=== PATIENT | male | born 1940 | race Caucasian/White ===

== ENCOUNTER 2016-07-23 19:43 | Observation (INO) | payer MEDICARE, BC ==
[2016-07-23] MEDS ORDERED: MORPHINE SULFATE 4 MG/ML SYRINGE IV STA (19:50)
[2016-07-23] MEDS ORDERED: NITROGLYCERIN SL TABS 0.4 MG TAB SUBLINGUAL PRN (19:50)
[2016-07-23] MEDS ORDERED: NITROGLYCERIN SL TABS 0.4 MG TAB SUBLINGUAL STA (19:50)
[2016-07-23] MEDS ORDERED: ASPIRIN 81 MG CHEW PO STA (19:50)
[2016-07-23] MEDS ORDERED: MORPHINE SULFATE 4 MG/ML SYRINGE IV PRN (19:50)
[2016-07-23] MEDS ORDERED: SODIUM CHLORIDE 0.9% 1,000 ML IV STA (19:50)
[2016-07-23 20:13] LABS: Basophils # (A) 0.1 k/uL (0-0.2); Basophils % (A) 1 %; CH 33.5; CHCM 35.5; Eosinophils # (A) 0.2 k/uL (0-0.7); Eosinophils % (A) 2 %; HCT 46.5 % (39.0-53.0); HDW 2.88; HGB 15.8 gm/dL (13.0-17.5); Luc # (Auto) 0.24; Luc % (Auto) 3; Lymphocytes # (A) 2.3 k/uL (1.0-4.8); Lymphocytes % (A) 24 %; MCH 32.3 pg (25.0-35.0); MCHC 34.1 g/dL (31.0-37.0); MCV 94.6 fL (80.0-100.0); Mean Platelet Volume 6.8; Monocytes # (A) 0.6 k/uL (0-1.0); Monocytes % (A) 6 %; Neutrophils % (A) 64 %; RBC 4.91 m/uL (4.30-5.90); RDW 13.2 % (11.5-15.5); WBC 9.4 k/uL (3.8-10.6); WBC (Perox) 9.68
[2016-07-23 20:25] LABS: ALT 39 U/L (21-72); AST 38 U/L (17-59); Alkaline Phosphatase 41 U/L (38-126); Anion Gap 12 mmol/L; Blood Urea Nitrogen 12 mg/dL (9-20); Carbon Dioxide 25 mmol/L (22-30); Chloride 105 mmol/L (98-107); Glucose 138 mg/dL (74-99); INR 1.1 (<1.1); Magnesium 1.7 mg/dL (1.6-2.3); Non-African American GFR(MDRD) >60 (>60 ml/min/1.73 sqM); Partial Thromboplastin Time 23.7 sec (22.0-30.0); Potassium 4.6 mmol/L (3.5-5.1); Prothrombin Time 10.7 sec (9.0-12.0); Sodium 142 mmol/L (137-145); Total Bilirubin 0.8 mg/dL (0.2-1.3); Total Protein 8.1 g/dL (6.3-8.2)
--- NOTE | 2016-07-23 20:27 | ED ---
General Adult HPI - General Chief complaint: Chest Pain Stated complaint: chest pain Time Seen by Provider: 07/23/16 19:50 Source: patient, RN notes reviewed, old records reviewed Mode of arrival: wheelchair Limitations: no limitations - History of Present Illness Initial comments: This is a 76-year-old male ER for evaluation for this patient presents today for evaluation of chest pain. Patient has significant cardiac history with CABG 4. No prior cardiac issue or stands for a year or so not years or so now. Patient is without chest pain this time but the chest pain was anterior left-sided Ayes has some numbness in his arms. Patient has no significant short of breath had no diaphoresis [place], again patient's chest pain remains resolved, no recent cough congestion or travel history. No fevers. - Related Data Home Medications Medication Instructions Recorded Confirmed Aspirin EC [Ecotrin Low Dose] 81 mg PO DAILY 07/23/16 07/23/16 Calcium Polycarbophil [Fibercon] 1,250 mg PO DAILY PRN 07/23/16 07/23/16 Ezetimibe [Zetia] 10 mg PO DAILY 07/23/16 07/23/16 Fenofibrate,Micronized 134 mg PO DAILY 07/23/16 07/23/16 [Fenofibrate] Fish Oil/Dha/Epa [Fish Oil 1,200 1 cap PO DAILY 07/23/16 07/23/16 mg Fish Oil] Levothyroxine Sodium [Synthroid] 125 mcg PO DAILY 07/23/16 07/23/16 Metoprolol Tartrate [Lopressor] 25 mg PO BID 07/23/16 07/23/16 Mineral Oil 30 ml PO HS 07/23/16 07/23/16 Naproxen Sodium [Aleve] 440 mg PO DAILY 07/23/16 07/23/16 Nystatin/Triamcin Cream [Mycolog 1 applic TOPICAL HS PRN 07/23/16 07/23/16 100,000-0.1 Unit/gm-% Cream] Ramipril [Altace] 5 mg PO DAILY 07/23/16 07/23/16 Rosuvastatin Calcium [Crestor] 20 mg PO DAILY 07/23/16 07/23/16 amLODIPine [Norvasc] 10 mg PO DAILY 07/23/16 07/23/16 metFORMIN HCL [Glucophage] 500 mg PO DAILY 07/23/16 07/23/16 Allergies Allergy/AdvReac Type Severity Reaction Status Date / Time codeine Allergy Unknown Verified 07/23/16 20:13 Penicillins Allergy Unknown Verified 07/23/16 20:13 Review of Systems ROS Statement: Those systems with pertinent positive or pertinent negative responses have been documented in the HPI. ROS Other: All systems not noted in ROS Statement are negative. Past Medical History Past Medical History: Diabetes Mellitus, Hyperlipidemia, Hypertension, Prostate Disorder, Thyroid Disorder Additional Past Medical History / Comment(s): carpel tunnel History of Any Multi-Drug Resistant Organisms: None Reported Past Surgical History: Cholecystectomy, Coronary Bypass/CABG Additional Past Surgical History / Comment(s): hemorrhoid Past Psychological History: No Psychological Hx Reported Smoking Status: Never smoker Past Alcohol Use History: None Reported Past Drug Use History: None Reported General Exam Limitations: no limitations General appearance: alert, in no apparent distress Head exam: Present: atraumatic, normocephalic, normal inspection Eye exam: Present: normal appearance, PERRL, EOMI. Absent: scleral icterus, conjunctival injection, periorbital swelling ENT exam: Present: normal exam, mucous membranes moist Neck exam: Present: normal inspection. Absent: tenderness, meningismus, lymphadenopathy Respiratory exam: Present: normal lung sounds bilaterally. Absent: respiratory distress, wheezes, rales, rhonchi, stridor Cardiovascular Exam: Present: regular rate, normal rhythm, normal heart sounds. Absent: systolic murmur, diastolic murmur, rubs, gallop, clicks GI/Abdominal exam: Present: soft, normal bowel sounds. Absent: distended, tenderness, guarding, rebound, rigid Extremities exam: Present: normal inspection, full ROM, normal capillary refill. Absent: tenderness, pedal edema, joint swelling, calf tenderness Back exam: Present: normal inspection Neurological exam: Present: alert, oriented X3, CN II-XII intact Psychiatric exam: Present: normal affect, normal mood Skin exam: Present: warm, dry, intact, normal color. Absent: rash Course Vital Signs 07/23/16 19:47 Temperature 98.2 F Pulse Rate 60 Respiratory 20 Rate Blood Pressure 185/93 O2 Sat by Pulse 97 Oximetry - Reevaluation(s) Reevaluation #1: 07/23/16 21:03 Patient remains without chest pain EKG Findings - EKG Comments: EKG Findings:: EKG shows normal sinus rhythm at 65, SD 180, QRS 102, QTC 434 Medical Decision Making - Medical Decision Making 76 male ER for evaluation of chest pain with positive cardiac risk factors and history of CABG, patient's initial EKG shows no ST elevation, patient will be admitted for anticoagulation and further treatment and management of chest pain - Lab Data Result diagrams: 07/23/16 20:03 07/23/16 20:03 Lab Results 07/23/16 07/23/16 07/23/16 Range/Units 20:03 20:03 20:03 WBC 9.4 (3.8-10.6) k/uL RBC 4.91 (4.30-5.90) m/uL Hgb 15.8 (13.0-17.5) gm/dL Hct 46.5 (39.0-53.0) % MCV 94.6 (80.0-100.0) fL MCH 32.3 (25.0-35.0) pg MCHC 34.1 (31.0-37.0) g/dL RDW 13.2 (11.5-15.5) % Plt Count 267 (150-450) k/uL Neutrophils % 64 % Lymphocytes % 24 % Monocytes % 6 % Eosinophils % 2 % Basophils % 1 % Neutrophils # 6.0 (1.3-7.7) k/uL Lymphocytes # 2.3 (1.0-4.8) k/uL Monocytes # 0.6 (0-1.0) k/uL Eosinophils # 0.2 (0-0.7) k/uL Basophils # 0.1 (0-0.2) k/uL PT (9.0-12.0) sec INR (<1.1) APTT (22.0-30.0) sec Sodium 142 (137-145) mmol/L Potassium 4.6 (3.5-5.1) mmol/L Chloride 105 (98-107) mmol/L Carbon Dioxide 25 (22-30) mmol/L Anion Gap 12 mmol/L BUN 12 (9-20) mg/dL Creatinine 0.83 (0.66-1.25) mg/dL Est GFR (MDRD) Af Amer >60 (>60 ml/min/1.73 sqM) Est GFR (MDRD) Non-Af >60 (>60 ml/min/1.73 sqM) Glucose 138 H (74-99) mg/dL Calcium 10.0 (8.4-10.2) mg/dL Magnesium 1.7 (1.6-2.3) mg/dL Total Bilirubin 0.8 (0.2-1.3) mg/dL AST 38 (17-59) U/L ALT 39 (21-72) U/L Alkaline Phosphatase 41 (38-126) U/L Total Creatine Kinase 178 H (55-170) U/L CK-MB (CK-2) 2.2 (0.0-2.4) ng/mL CK-MB (CK-2) Rel Index 1.2 Troponin I <0.012 (0.000-0.034) ng/mL Total Protein 8.1 (6.3-8.2) g/dL Albumin 4.4 (3.5-5.0) g/dL Lipase 178 (23-300) U/L 07/23/16 Range/Units 20:03 WBC (3.8-10.6) k/uL RBC (4.30-5.90) m/uL Hgb (13.0-17.5) gm/dL Hct (39.0-53.0) % MCV (80.0-100.0) fL MCH (25.0-35.0) pg MCHC (31.0-37.0) g/dL RDW (11.5-15.5) % Plt Count (150-450) k/uL Neutrophils % % Lymphocytes % % Monocytes % % Eosinophils % % Basophils % % Neutrophils # (1.3-7.7) k/uL Lymphocytes # (1.0-4.8) k/uL Monocytes # (0-1.0) k/uL Eosinophils # (0-0.7) k/uL Basophils # (0-0.2) k/uL PT 10.7 (9.0-12.0) sec INR 1.1 (<1.1) APTT 23.7 (22.0-30.0) sec Sodium (137-145) mmol/L Potassium (3.5-5.1) mmol/L Chloride (98-107) mmol/L Carbon Dioxide (22-30) mmol/L Anion Gap mmol/L BUN (9-20) mg/dL Creatinine (0.66-1.25) mg/dL Est GFR (MDRD) Af Amer (>60 ml/min/1.73 sqM) Est GFR (MDRD) Non-Af (>60 ml/min/1.73 sqM) Glucose (74-99) mg/dL Calcium (8.4-10.2) mg/dL Magnesium (1.6-2.3) mg/dL Total Bilirubin (0.2-1.3) mg/dL AST (17-59) U/L ALT (21-72) U/L Alkaline Phosphatase (38-126) U/L Total Creatine Kinase (55-170) U/L CK-MB (CK-2) (0.0-2.4) ng/mL CK-MB (CK-2) Rel Index Troponin I (0.000-0.034) ng/mL Total Protein (6.3-8.2) g/dL Albumin (3.5-5.0) g/dL Lipase (23-300) U/L - Radiology Data Radiology results: report reviewed (Chest x-ray two-view is negative for acute disease), image reviewed Critical Care Time Critical Care Time: Yes Total Critical Care Time: 31 Disposition Clinical Impression: Chest pain Disposition: ADMITTED IP TO THIS [facility] Condition: Undetermined Instructions: Chest Pain (ED) Referrals: Shaun Desai MD [Primary Care Provider] - 1-2 days
[2016-07-23 20:28] LABS: Creatine Kinase 178 U/L (55-170)
--- NOTE | 2016-07-23 20:31 | XR ---
EXAMINATION TYPE: XR chest 2V DATE OF EXAM: 07/23/2016 8:25 PM COMPARISON: 07/23/2012 HISTORY: Chest pain TECHNIQUE: Frontal and lateral views of the chest are obtained. FINDINGS: Heart is normal. Lungs are clear. There are sternal wires. There are chest leads. Costophr enic angles are clear. Bony thorax appears intact. IMPRESSION: No active cardiopulmonary disease. Normal heart. No change.
[2016-07-23 20:40] LABS: Creatine Kinase MB 2.2 ng/mL (0.0-2.4); Troponin I <0.012 ng/mL (0.000-0.034)
[2016-07-23] MEDS ORDERED: HEPARIN SODIUM,PORCINE 5,000 UNIT/ML 1 ML VIAL IV ONE (21:04)
[2016-07-23] MEDS ORDERED: HEPARIN SODIUM,PORCINE 5,000 UNIT/ML 1 ML VIAL IV PRN (21:04)
[2016-07-23] MEDS ORDERED: HEPARIN SODIUM,PORCINE/D5W PMX 25,000 UNIT in DEXTROSE/WATER 1 500ML.BAG IV SCH (21:15)
[2016-07-23] MEDS: ONDANSETRON 4 MG/2 ML VIAL IVP STA ×2 (21:23→21:52)
[2016-07-23] MEDS ORDERED: ONDANSETRON 4 MG/2 ML VIAL IVP PRN (21:55)
[2016-07-23 22:22] LABS: Glucose,Whole Blood 162 mg/dL (75-99)
[2016-07-23 22:35] VITALS: BMI 38.2
[2016-07-24 02:33] LABS: Creatine Kinase 183 U/L (55-170)
[2016-07-24 02:45] LABS: Creatine Kinase MB 2.2 ng/mL (0.0-2.4); Troponin I <0.012 ng/mL (0.000-0.034)
[2016-07-24 06:54] LABS: Glucose,Whole Blood 132 mg/dL (75-99)
[2016-07-24 08:07] LABS: Basophils # (A) 0.1 k/uL (0-0.2); Basophils % (A) 1 %; CHCM 34.8; Eosinophils # (A) 0.1 k/uL (0-0.7); Eosinophils % (A) 1 %; HCT 45.5 % (39.0-53.0); HDW 2.96; HGB 15.2 gm/dL (13.0-17.5); Luc # (Auto) 0.16; Luc % (Auto) 2; Lymphocytes # (A) 1.7 k/uL (1.0-4.8); Lymphocytes % (A) 16 %; MCH 31.9 pg (25.0-35.0); MCHC 33.4 g/dL (31.0-37.0); MCV 95.4 fL (80.0-100.0); Mean Platelet Volume 7.7; Monocytes # (A) 0.7 k/uL (0-1.0); Monocytes % (A) 7 %; Neutrophils # (A) 7.7 k/uL (1.3-7.7); Neutrophils % (A) 74 %; RBC 4.77 m/uL (4.30-5.90); RDW 13.2 % (11.5-15.5); WBC 10.4 k/uL (3.8-10.6); WBC (Perox) 10.72
[2016-07-24 08:28] LABS: Cholesterol 132 mg/dL (<200); HDL Cholesterol 41 mg/dL (40-60); Triglycerides 144 mg/dL (<150)
--- NOTE | 2016-07-24 08:37 | P.HPIM ---
History of Present Illness H&P Date: 07/24/16 Chief Complaint: Chest pressure. This is a 76-year-old white male with history of hypertension, who stated yesterday severe chest pressure. The patient states no radiation and no nausea but the severity of the pain made him come in for evaluation. No significant fever or chills. No cough. The patient is a nonsmoker. No second hand smoke is noted. Given his symptomatology and history of hypertension, he is appropriately admitted for rule out myocardial infarction. Stress testing is most likely indicated in this particular situation given his advanced age. Review of Systems Constitutional: Denies chills, Denies fever Eyes: denies blurred vision, denies pain Ears, nose, mouth and throat: Denies headache, Denies sore throat Cardiovascular: Reports chest pain, Denies leg edema, Denies shortness of breath Gastrointestinal: Denies abdominal pain, Denies diarrhea, Denies nausea, Denies vomiting Musculoskeletal: Denies myalgias Integumentary: Reports as per HPI Neurological: Denies numbness, Denies weakness Past Medical History Past Medical History: Diabetes Mellitus, Hyperlipidemia, Hypertension, Prostate Disorder, Thyroid Disorder Additional Past Medical History / Comment(s): carpel tunnel History of Any Multi-Drug Resistant Organisms: None Reported Past Surgical History: Cholecystectomy, Coronary Bypass/CABG Additional Past Surgical History / Comment(s): hemorrhoid, CABG X4 Past Anesthesia/Blood Transfusion Reactions: No Reported Reaction Past Psychological History: No Psychological Hx Reported Smoking Status: Never smoker Past Alcohol Use History: None Reported Past Drug Use History: None Reported - Past Family History Father Family Medical History: No Reported History Additional Family Medical History / Comment(s): Smoker Mother Family Medical History: No Reported History Medications and Allergies Home Medications Medication Instructions Recorded Confirmed Type Aspirin EC [Ecotrin Low Dose] 81 mg PO DAILY 07/23/16 07/23/16 History Calcium Polycarbophil [Fibercon] 1,250 mg PO DAILY PRN 07/23/16 07/23/16 History Ezetimibe [Zetia] 10 mg PO DAILY 07/23/16 07/23/16 History Fenofibrate,Micronized 134 mg PO DAILY 07/23/16 07/23/16 History [Fenofibrate] Fish Oil/Dha/Epa [Fish Oil 1,200 1 cap PO DAILY 07/23/16 07/23/16 History mg Fish Oil] Levothyroxine Sodium [Synthroid] 125 mcg PO DAILY 07/23/16 07/23/16 History Metoprolol Tartrate [Lopressor] 25 mg PO BID 07/23/16 07/23/16 History Mineral Oil 30 ml PO HS 07/23/16 07/23/16 History Naproxen Sodium [Aleve] 440 mg PO DAILY 07/23/16 07/23/16 History Nystatin/Triamcin Cream [Mycolog 1 applic TOPICAL HS PRN 07/23/16 07/23/16 History 100,000-0.1 Unit/gm-% Cream] Ramipril [Altace] 5 mg PO DAILY 07/23/16 07/23/16 History Rosuvastatin Calcium [Crestor] 20 mg PO BID 07/23/16 07/23/16 History amLODIPine [Norvasc] 10 mg PO DAILY 07/23/16 07/23/16 History metFORMIN HCL [Glucophage] 500 mg PO DAILY 07/23/16 07/23/16 History Allergies Allergy/AdvReac Type Severity Reaction Status Date / Time codeine Allergy Unknown Verified 07/23/16 22:19 Penicillins Allergy Unknown Verified 07/23/16 22:19 Physical Exam Vitals: Vital Signs Temp Pulse Pulse Resp BP BP BP 07/24/16 08:00 98.2 F 83 18 153/88 07/24/16 07:17 07/24/16 04:00 86 16 158/90 07/24/16 00:00 84 16 187/86 07/23/16 23:22 20 07/23/16 21:45 98.2 F 73 16 180/87 07/23/16 21:40 96.7 F L 71 20 155/91 Pulse Ox 07/24/16 08:00 93 L 07/24/16 07:17 92 L 07/24/16 04:00 96 07/24/16 00:00 98 07/23/16 23:22 07/23/16 21:45 93 L 07/23/16 21:40 100 Intake and Output 07/23/16 07/24/16 07/24/16 22:59 06:59 14:59 Other: # Voids 2 Weight 113.9 kg - Constitutional General appearance: obese - EENT Eyes: EOMI - Neck Neck: no lymphadenopathy - Respiratory Respiratory: bilateral: CTA - Cardiovascular Rhythm: regular Heart sounds: normal: S1, S2 - Gastrointestinal General gastrointestinal: soft, tenderness - Integumentary Integumentary: rash - Musculoskeletal Musculoskeletal: gait normal Results CBC & Chem 7: 07/24/16 07:31 07/23/16 20:03 Labs: Abnormal Lab Results - Last 24 Hours (Table) 07/23/16 07/23/16 07/23/16 Range/Units 20:03 20:03 22:18 Glucose 138 H (74-99) mg/dL POC Glucose (mg/dL) 162 H (75-99) mg/dL Total Creatine Kinase 178 H (55-170) U/L 07/24/16 07/24/16 Range/Units 01:44 06:47 Glucose (74-99) mg/dL POC Glucose (mg/dL) 132 H (75-99) mg/dL Total Creatine Kinase 183 H (55-170) U/L Thrombosis Risk Factor Assmnt - Choose All That Apply Each Risk Factor Represents 3 Points: Age 75 years or older Thrombosis Risk Factor Assessment Total Risk Factor Score: 3 Thrombosis Risk Factor Assessment Level: Moderate Risk Assessment and Plan (1) Chest pain Status: Acute Plan: Rule out myocardial infarction. Continue home medications. If positivity on stress testing, necessary cardiac evaluation is necessary. Otherwise anticipate discharge in the next 24 hours if stable. Time with Patient: Less than 30
--- NOTE | 2016-07-24 08:43 | CONS ---
DATE OF CONSULTATION: Roel is a 76-year-old gentleman with a history of coronary artery disease, status post CABG who comes to the hospital complaining of chest pain. He describes it as a chest discomfort, located in the left pericardial area that was located in one place lasted for almost a day pressure-like sensation at rest. No diaphoresis, dizziness, and shortness of breath without clear-cut relieving or exacerbating factors. He came to the hospital and was admitted. Since admission patient has remained pain free and hemodynamically stable. He has had cardiac enzymes that have all been within normal limits. Rhythm strip shows that he is in sinus rhythm. EKG does not reveal ST-T wave changes. Given the known CAD and unexplained chest discomfort, I advised the patient to undergo stress test and if it is abnormal, I will ask him to undergo cardiac catheterization. Past medical history is significant for coronary artery disease, status post CABG, hypertension, dyslipidemia, hypothyroidism, noninsulin dependent diabetes. ALLERGIC TO CODEINE AND PENICILLIN. Current medications include metformin, amlodipine 10 mg daily, Crestor 20 daily, Altace 5 daily, Lopressor, levothyroxine, fenofibrate, Zetia, aspirin. FAMILY HISTORY: Negative for premature coronary artery disease. SOCIAL HISTORY: Negative for smoking, EtOH use or drug abuse. REVIEW OF SYSTEMS: HEENT: Unremarkable. CARDIAC: As described above. RESPIRATORY: Negative. GI: Negative. GENITOURINARY: Negative. ALLERGY/IMMUNOLOGY: Negative. SKIN: Negative. MUSCULOSKELETAL: Negative. ENDOCRINE: Negative. HEMATOLOGIC: Negative. DERM: Negative. CONSTITUTIONAL: Negative. The rest of the system review is not relevant. Past medical history is also significant for diabetes, hypertension, dyslipidemia. On exam, patient is comfortable at rest. Vital signs are stable. There is no jugular venous distention. Carotid upstroke is normal. There is no bruit. Chest exam reveals good air entry bilaterally. Heart exam reveals first and second heart sounds. No gallop. No murmur, no rub. Abdomen is soft, nontender. Exam of extremities did not reveal edema. Peripheral pulses are felt. ASSESSMENT: 1. Chest pain. 2. Coronary artery disease status post coronary artery bypass graft. 3. Hypertension. 4. Dyslipidemia. PLAN: Patient's chest discomfort has both typical and atypical components to it. He is pain-free this morning. Myocardial infarction is ruled out. EKG does not reveal ischemic changes. I am going to schedule him for an echocardiogram and stress test and decide on further course of action.
[2016-07-24] MEDS ORDERED: ATORVASTATIN 80 MG TAB PO SCH (09:00)
[2016-07-24] MEDS ORDERED: ASPIRIN 325 MG TAB PO SCH (09:00)
[2016-07-24 09:21] LABS: Hemoglobin A1C 6.5 % (4.2-6.1)
--- NOTE | 2016-07-24 10:29 | EST ---
DATE OF SERVICE: 07/24/2016 AGE: 76Y SEX: M HT: 5'8" WT: 255 lbs. Protocol Rodolfo: X Other: Cardiolite Stress Stage: II Dur. of Exercise: 6:00 *Heart Rate Blood Pressure *Rest: 96 Rest: 197/97 * *Max. Achieved: 144 Maximum BP: 242/103 85% PMHR: 124 100% PMHR: 146 *METS: 7.3 INDICATIONS: Chest pain. MEDICATIONS: - STRESS DATA: Pretesting physical examination showed a heart rate of 96, pressure is 197/97 mmHg. Baseline EKG showed sinus mechanism. The patient exercised on the treadmill according to Rodolfo protocol for a total of 6 minutes and achieved 7.3 METs with max heart rate was 144, which is about 100% of maximum predicted heart rate. Maximum blood pressure was 242/103 mmHg. Clinically, the patient did not have any symptoms of chest pain but he had [address] segment changes on recovery. CONCLUSION: 1. Good exercise capacity. 2. Mild EKG changes in response to exercise. 3. Please follow up on the Cardiolite portion on a separate report from the Radiology Department.
--- NOTE | 2016-07-24 11:09 | NM ---
EXAMINATION TYPE: NM stress cardiolite complete DATE OF EXAM: 07/24/2016 10:53 AM COMPARISON: Prior nuclear medicine cardiac stress test July 25, 2012. HISTORY: History of hypertension, hypercholesteremia, and prior heart catheterization with 4 vessel C ABG procedure presents with new chest pain TECHNIQUE: After the intravenous administration of 11 mCi Tc 99m Sestamibi - Rest images obtained 50 minutes post injection. The patient exercised using a PATRIA protocol and 1 minute prior to peak ex ercise was injected with 27.5 mCi Tc 99m Sestamibi - Stress images obtained 10 minutes post injection . FINDINGS: Targeted heart rate was achieved during performance of the study. Review of stress and rest SPECT josh ges demonstrates no distinct perfusion abnormality. Gated analysis shows normal wall motion with an estimated left ventricular ejection fraction of 59 %. IMPRESSION: No scintigraphic evidence for reversible ischemia
[2016-07-24] MEDS ORDERED: ACETAMINOPHEN TAB 325 MG TAB PO PRN (11:54)
[2016-07-24 12:04] LABS: Glucose,Whole Blood 185 mg/dL (75-99)
[2016-07-24] MEDS ORDERED: NYSTAT-TRIAMCIN 100,000-0.1 UNIT/GM-% CREAM 30 GM TUBE TOPICAL PRN (12:58)
[2016-07-24] MEDS ORDERED: metFORMIN 500 MG TAB PO SCH (13:00)
[2016-07-24] MEDS ORDERED: CALCIUM POLYCARBOPHIL 625 MG TAB PO PRN (13:20)
[2016-07-24] MEDS ORDERED: TRIAMCINOLONE 0.1% CREAM 80 GM TUBE TOPICAL PRN (13:24)
[2016-07-24] MEDS ORDERED: NYSTATIN 100,000UNIT/GM CREAM 30 GM TUBE TOPICAL PRN (13:25)
[2016-07-24 16:02] VITALS: BP 117/69; PULSE 77; RESP 16; TEMP 97.9
[2016-07-24] MEDS ORDERED: NON-FORMULARY DRUG (Rosuvastatin Calcium [Crestor] 20 MG) PO SCH (21:00)
[2016-07-24] MEDS ORDERED: METOPROLOL TARTRATE 25 MG TAB PO SCH (21:00)
[2016-07-24] MEDS ORDERED: MINERAL OIL 30 ML CUP PO SCH (21:00)
[2016-07-24] MEDS ORDERED: ATORVASTATIN 40 MG TAB PO SCH (21:00)
[2016-07-25] MEDS ORDERED: LEVOTHYROXINE 125 MCG TAB PO SCH (06:30)
[2016-07-25] MEDS ORDERED: NON-FORMULARY DRUG (Fish Oil/Dha/Epa [Fish Oil 1,200 Mg Fish Oil] 1 CAP) PO SCH (09:00)
[2016-07-25] MEDS ORDERED: EZETIMIBE 10 MG TAB PO SCH (09:00)
[2016-07-25] MEDS ORDERED: FENOFIBRATE 160 MG TAB PO SCH (09:00)
[2016-07-25] MEDS ORDERED: amLODIPine 10 MG TAB PO SCH (09:00)
[2016-07-25] MEDS ORDERED: LISINOPRIL 20 MG TAB PO SCH (09:00)
[2016-07-25] MEDS ORDERED: NAPROXEN 250 MG TAB PO SCH (09:00)
[2016-07-25] MEDS ORDERED: ASPIRIN 81 MG CHEW PO SCH (09:00)
== END 2016-07-24 16:46 | disposition home or self-care (01) ==
LOC: EC 19:43 → 3OBS 19:50
PROVIDERS: ADMIT Family Medicine; ATTEND Family Medicine
DX: R07.9 Chest pain, unspecified (principal); I25.10 Atherosclerotic heart disease of native coronary artery without angina pectoris; E03.9 Hypothyroidism, unspecified; E11.9 Type 2 diabetes mellitus without complications; E78.5 Hyperlipidemia, unspecified; I10 Essential (primary) hypertension; Z79.82 Long term (current) use of aspirin; Z88.0 Allergy status to penicillin; Z88.5 Allergy status to narcotic agent; Z95.1 Presence of aortocoronary bypass graft; Z79.84 Long term (current) use of oral hypoglycemic drugs; Z79.890 Hormone replacement therapy; Z79.899 Other long term (current) drug therapy
CPT/HCPCS: 99291; 96375 ×2; 96376; 96361; 93005 ×2; 36415; 94760; 93017; 80061; 80053; 83036; 82550 ×2; 82553 ×2; 83690; 83735; 84484 ×2; 85025 ×2; 85610; 85730 ×2; 71020; 78452; G0378 ×2; A9500; J2270 ×2; J1644 ×2; J2405; 96365; 96366

== ENCOUNTER 2017-06-24 18:18 | Observation (INO) | payer BC, MEDICARE ==
[2017-06-24] MEDS ORDERED: ASPIRIN 81 MG PO STA (18:39)
[2017-06-24] MEDS ORDERED: NITROGLYCERIN OINT 1 INCH/GM PACKET TOPICAL STA (18:39)
--- NOTE | 2017-06-24 18:43 | ED ---
Chest Pain HPI - General Chief Complaint: Chest Pain Stated Complaint: Chest pain Time Seen by Provider: 06/24/17 18:34 Source: patient, family Mode of arrival: wheelchair Limitations: no limitations - History of Present Illness Initial Comments: This 77-year-old white male presents with a complaint of some chest pain. This occurred after he was shoveling some snow this morning. He states that he gets a slight twinge into his left chest intermittently throughout the day. It usually lasts several seconds. It does not radiate. It is not associated with any shortness of breath or difficulty in breathing. He denies any leg pain or swelling. He does have a history of cardiac disease. He had a four-vessel CABG in 2001. He denies any complications since. He is unsure of his last heart catheterization but it is been quite some time ago. He apparently did have a routine stress test within the last year or 2 which was negative but the states he did not complete the second portion of this test. He did not try any nitroglycerin today. No other complaints or modifying factors. - Related Data Home Medications Medication Instructions Recorded Confirmed Aspirin EC [Ecotrin Low Dose] 81 mg PO QAM 07/23/16 06/24/17 Calcium Polycarbophil [Fibercon] 1,250 mg PO DAILY PRN 07/23/16 06/24/17 Ezetimibe [Zetia] 10 mg PO HS 07/23/16 06/24/17 Fenofibrate,Micronized 134 mg PO QAM 07/23/16 06/24/17 [Fenofibrate] Fish Oil/Dha/Epa [Fish Oil 1,200 1 cap PO QAM 07/23/16 06/24/17 mg Fish Oil] Levothyroxine Sodium [Synthroid] 125 mcg PO QAM 07/23/16 06/24/17 Metoprolol Tartrate [Lopressor] 25 mg PO BID 07/23/16 06/24/17 Mineral Oil 30 ml PO HS 07/23/16 06/24/17 Naproxen Sodium [Aleve] 440 mg PO QAM 07/23/16 06/24/17 Nystatin/Triamcin Cream [Mycolog 1 applic TOPICAL HS PRN 07/23/16 06/24/17 100,000-0.1 Unit/gm-% Cream] Ramipril [Altace] 5 mg PO QAM 07/23/16 06/24/17 Rosuvastatin Calcium [Crestor] 20 mg PO HS 07/23/16 06/24/17 amLODIPine [Norvasc] 10 mg PO QAM 07/23/16 06/24/17 metFORMIN HCL [Glucophage] 500 mg PO QAM 07/23/16 06/24/17 Allergies Allergy/AdvReac Type Severity Reaction Status Date / Time codeine Allergy Unknown Verified 06/24/17 18:43 Penicillins Allergy Unknown Verified 06/24/17 18:43 Review of Systems ROS Statement: Those systems with pertinent positive or pertinent negative responses have been documented in the HPI. ROS Other: All systems not noted in ROS Statement are negative. Past Medical History Past Medical History: Diabetes Mellitus, Hyperlipidemia, Hypertension, Prostate Disorder, Thyroid Disorder Additional Past Medical History / Comment(s): carpel tunnel History of Any Multi-Drug Resistant Organisms: None Reported Past Surgical History: Cholecystectomy, Coronary Bypass/CABG Additional Past Surgical History / Comment(s): hemorrhoid, CABG X4 Past Anesthesia/Blood Transfusion Reactions: No Reported Reaction Past Psychological History: No Psychological Hx Reported Smoking Status: Never smoker Past Alcohol Use History: None Reported Past Drug Use History: None Reported - Past Family History Father Family Medical History: No Reported History Additional Family Medical History / Comment(s): Smoker Mother Family Medical History: No Reported History General Exam - General Exam Comments Initial Comments: GENERAL: The patient is well nourished and well hydrated. VITAL SIGNS: Heart rate, blood pressure, respiratory rate reviewed as recorded in nurse's notes. EYES: Pupils are round and reactive. Extraocular movements are intact. No conjunctival / lid redness or swelling. ENT: No external evidence of injury, swelling, or ecchymosis. Airway is patent. Throat is clear. NECK: Nontender. No swelling or evidence of injury. No subcutaneous emphysema. Trachea is midline. No thyroid mass. HEART: Regular rate and rhythm. Good peripheral pulses. LUNGS/CHEST: Breath sounds clear and equal bilaterally. No rales, rhonchi, or wheezes. No ecchymosis, subcutaneous emphysema, or tenderness. ABDOMEN: Abdomen soft without tenderness. No palpable masses or organomegaly. No peritoneal signs. No abdominal wall swelling or ecchymosis. EXTREMITIES: No extremity tenderness. Normal muscle tone and function. No thoracolumbar tenderness. NEUROLOGIC: Sensation is grossly intact. Cranial nerve exam reveals face is symmetrical, tongue is midline, speech is clear. SKIN: No abrasions or ecchymosis is noted. No induration or masses noted. PSYCHIATRIC: Alert and oriented. Appropriate behavior and judgment. Limitations: no limitations Course Vital Signs 06/24/17 18:20 Temperature 98.2 F Pulse Rate 77 Respiratory 20 Rate Blood Pressure 161/79 O2 Sat by Pulse 95 Oximetry Chest Pain MDM - MDM The patient was seen and examined. All diagnostics were reviewed. The EKG was done and shows a normal sinus rhythm at a rate of 76. There is no acute ST-T wave changes identified. The LA interval is 172, QRS duration is 100, the QTC intervals 452. He does receive aspirin as well as some Nitropaste. The laboratory is unremarkable. The chest x-ray did not show any acute processes. He is in no distress whatsoever on recheck. Is felt as though he would benefit from admission to the hospital for further Cardiologic workup. He is agreeable. Case will be discussed with Dr. Desai in the near future. Disposition Clinical Impression: Unstable angina pectoris, Chest pain, Hypertension Disposition: ADMITTED IP TO THIS HOSP Condition: Fair Referrals: Shaun Desai MD [Primary Care Provider] - 1-2 days Time of Disposition: 20:24 Decision Date: 06/24/17 Decision Time: 20:25
[2017-06-24 19:23] LABS: Basophils # (A) 0.1 k/uL (0-0.2); Basophils % (A) 1 %; Eosinophils # (A) 0.1 k/uL (0-0.7); Eosinophils % (A) 1 %; HCT 44.6 % (39.0-53.0); HGB 15.2 gm/dL (13.0-17.5); Lymphocytes % (A) 24 %; MCH 32.2 pg (25.0-35.0); MCHC 34.2 g/dL (31.0-37.0); MCV 94.1 fL (80.0-100.0); Mean Platelet Volume 7.4; Monocytes # (A) 0.6 k/uL (0-1.0); Monocytes % (A) 7 %; Neutrophils # (A) 5.6 k/uL (1.3-7.7); Neutrophils % (A) 66 %; Platelet Count 249 k/uL (150-450); RBC 4.74 m/uL (4.30-5.90); RDW 13.9 % (11.5-15.5); WBC 8.6 k/uL (3.8-10.6)
--- NOTE | 2017-06-24 19:31 | XR ---
EXAMINATION TYPE: XR chest 2V DATE OF EXAM: 06/24/2017 COMPARISON: 07/23/2016 HISTORY: Chest pain TECHNIQUE: Frontal and lateral views of the chest are obtained. FINDINGS: There is no focal air space opacity, pleural effusion, or pneumothorax seen. Post-CABG luisito nges are appreciated of the chest. There is descending thoracic aortic tortuosity. The cardiac silhou ette size is within normal limits. The osseous structures are intact. Mild multilevel degenerative changes of the thoracic spine are seen. IMPRESSION: No acute cardiopulmonary process.
[2017-06-24 19:32] LABS: ALT 43 U/L (21-72); AST 28 U/L (17-59); Albumin 4.3 g/dL (3.5-5.0); Alkaline Phosphatase 45 U/L (38-126); Anion Gap 10 mmol/L; Blood Urea Nitrogen 16 mg/dL (9-20); Carbon Dioxide 29 mmol/L (22-30); Chloride 106 mmol/L (98-107); Glucose 141 mg/dL (74-99); Magnesium 1.8 mg/dL (1.6-2.3); Potassium 4.1 mmol/L (3.5-5.1); Sodium 145 mmol/L (137-145); Total Bilirubin 0.6 mg/dL (0.2-1.3); Total Protein 7.5 g/dL (6.3-8.2)
[2017-06-24 19:55] LABS: Creatine Kinase MB 2.4 ng/mL (0.0-2.4); Troponin I 0.019 ng/mL (0.000-0.034)
[2017-06-24 20:00] LABS: INR 1.1 (<1.2); Prothrombin Time 10.6 sec (9.0-12.0)
[2017-06-24 20:01] LABS: Partial Thromboplastin Time 23.1 sec (22.0-30.0)
[2017-06-24] MEDS ORDERED: NITROGLYCERIN SL TABS 0.4 MG TAB SUBLINGUAL PRN (20:26)
[2017-06-24] MEDS ORDERED: HEPARIN SODIUM,PORCINE 5,000 UNIT/ML 1 ML VIAL IV ONE (20:26)
[2017-06-24] MEDS ORDERED: HEPARIN SODIUM,PORCINE 5,000 UNIT/ML 1 ML VIAL IV PRN (20:26)
[2017-06-24] MEDS ORDERED: CALCIUM POLYCARBOPHIL 625 MG TAB PO PRN (20:29)
[2017-06-24] MEDS ORDERED: NYSTATIN 100,000UNIT/GM CREAM 30 GM TUBE TOPICAL PRN (20:29)
[2017-06-24] MEDS ORDERED: TRIAMCINOLONE 0.1% CREAM 80 GM TUBE TOPICAL PRN (20:43)
[2017-06-24] MEDS ORDERED: MINERAL OIL 30 ML CUP PO SCH (21:00)
[2017-06-24] MEDS ORDERED: MINERAL OIL PO SCH (21:14)
[2017-06-24] MEDS: HEPARIN SOD,PORK IN 0.45% NACL 25,000 UNIT in 0.45% NACL 1 500ML.BAG IV SCH (21:29)
[2017-06-24 21:35] VITALS: RESP 18
[2017-06-24] MEDS: METOPROLOL TARTRATE 25 MG TAB PO SCH (22:30)
[2017-06-24] MEDS: EZETIMIBE 10 MG TAB PO SCH (22:30)
[2017-06-24] MEDS: ATORVASTATIN 40 MG TAB PO SCH (22:31)
[2017-06-24] MEDS ORDERED: KETOROLAC 30 MG/ML 1 ML VIAL IVP STA (23:30)
[2017-06-25 02:17] LABS: Creatine Kinase MB 2.1 ng/mL (0.0-2.4); Troponin I 0.022 ng/mL (0.000-0.034)
[2017-06-25] MEDS: NITROGLYCERIN OINT 1 INCH/GM PACKET TOPICAL SCH ×5 (02:21→23:01)
[2017-06-25 03:31] LABS: Mean Platelet Volume 6.9; Platelet Count 236 k/uL (150-450)
[2017-06-25 03:55] LABS: Cholesterol 103 mg/dL (<200); HDL Cholesterol 29 mg/dL (40-60); LDL Cholesterol,Calculated 44 mg/dL (0-99); Triglycerides 150 mg/dL (<150)
[2017-06-25 04:09] VITALS: BMI 37.2
[2017-06-25] MEDS: LEVOTHYROXINE 125 MCG TAB PO SCH (06:42)
[2017-06-25] MEDS ORDERED: metFORMIN 500 MG TAB PO SCH (07:30)
--- NOTE | 2017-06-25 07:51 | P.HPIM ---
History of Present Illness H&P Date: 06/25/17 Chief Complaint: Chest pressure after exertion. This is a history of physical on a 77-year-old white male essentially admitted for chest pain after shoveling snow yesterday. He has an underlying history of previous coronary artery disease. He states he was doing quite well until shortly after shoveling the snow and using the snowblower to remove the snow fall from yesterday.The patient is sitting comfortably but states his had fleeting palpitations and pain since admission. He did not take any type of nitroglycerin. He is a nonsmoker and there is no secondhand smoke noted. No sniffing nausea or vomiting was stated. No diaphoresis but he had left-sided chest pain. No radiation of the pain stated. But it was felt to be pressure type pain which waxed and waned. Review of Systems Constitutional: Denies chills, Denies fever Eyes: denies blurred vision, denies pain Ears, nose, mouth and throat: Denies headache, Denies sore throat Cardiovascular: Reports chest pain Respiratory: Denies cough Gastrointestinal: Denies abdominal pain, Denies diarrhea, Denies nausea, Denies vomiting Past Medical History Past Medical History: Hyperlipidemia, Hypertension, Prostate Disorder, Thyroid Disorder Additional Past Medical History / Comment(s): carpel tunnel History of Any Multi-Drug Resistant Organisms: None Reported Past Surgical History: Cholecystectomy, Coronary Bypass/CABG Additional Past Surgical History / Comment(s): hemorrhoid, CABG X4 Past Anesthesia/Blood Transfusion Reactions: No Reported Reaction Past Psychological History: No Psychological Hx Reported Smoking Status: Never smoker Past Alcohol Use History: None Reported Past Drug Use History: None Reported - Past Family History Father Family Medical History: No Reported History Additional Family Medical History / Comment(s): Smoker Mother Family Medical History: No Reported History Medications and Allergies Home Medications Medication Instructions Recorded Confirmed Type Aspirin EC [Ecotrin Low Dose] 81 mg PO QAM 07/23/16 06/24/17 History Calcium Polycarbophil [Fibercon] 1,250 mg PO DAILY PRN 07/23/16 06/24/17 History Ezetimibe [Zetia] 10 mg PO HS 07/23/16 06/24/17 History Fenofibrate,Micronized 134 mg PO QAM 07/23/16 06/24/17 History [Fenofibrate] Fish Oil/Dha/Epa [Fish Oil 1,200 1 cap PO QAM 07/23/16 06/24/17 History mg Fish Oil] Levothyroxine Sodium [Synthroid] 125 mcg PO QAM 07/23/16 06/24/17 History Metoprolol Tartrate [Lopressor] 25 mg PO BID 07/23/16 06/24/17 History Mineral Oil 30 ml PO HS 07/23/16 06/24/17 History Naproxen Sodium [Aleve] 440 mg PO QAM 07/23/16 06/24/17 History Nystatin/Triamcin Cream [Mycolog 1 applic TOPICAL HS PRN 07/23/16 06/24/17 History 100,000-0.1 Unit/gm-% Cream] Ramipril [Altace] 5 mg PO QAM 07/23/16 06/24/17 History Rosuvastatin Calcium [Crestor] 20 mg PO HS 07/23/16 06/24/17 History amLODIPine [Norvasc] 10 mg PO QAM 07/23/16 06/24/17 History metFORMIN HCL [Glucophage] 500 mg PO QAM 07/23/16 06/24/17 History Allergies Allergy/AdvReac Type Severity Reaction Status Date / Time codeine Allergy Unknown Verified 06/24/17 18:43 Penicillins Allergy Unknown Verified 06/24/17 18:43 Physical Exam Vitals: Vital Signs Temp Pulse Pulse Resp BP BP Pulse Ox 06/25/17 07:47 98.0 F 66 18 125/77 94 L 06/25/17 03:00 18 06/25/17 01:10 97.9 F 65 18 145/84 96 06/24/17 23:53 68 18 141/85 06/24/17 21:33 78 18 140/87 06/24/17 18:20 98.2 F 77 20 161/79 95 Intake and Output 06/24/17 06/25/17 06/25/17 22:59 06:59 14:59 Intake Total 184.667 Balance 184.667 Intake: Intake, IV Titration 184.667 Amount Heparin Sod,Pork in 0.45% 184.667 NaCl 25,000 unit In 0.45 % NaCl 1 500ml.bag @ 9 UNITS/KG/HR 20 mls/hr IV .Q24H [facility] Rx#:[id number] Other: Weight 111.13 kg 111.13 kg - Constitutional General appearance: obese - EENT Eyes: EOMI - Neck Neck: no lymphadenopathy - Respiratory Respiratory: bilateral: CTA - Cardiovascular Rhythm: regular Heart sounds: normal: S1, S2 Abnormal Heart Sounds: systolic murmur - Gastrointestinal General gastrointestinal: soft, no tenderness - Neurologic Neurologic: CNII-XII intact - Psychiatric Psychiatric: A&O x's 3, appropriate affect Results CBC & Chem 7: 06/25/17 03:02 06/24/17 19:15 Labs: Abnormal Lab Results - Last 24 Hours (Table) 06/24/17 06/24/17 06/25/17 Range/Units 19:15 19:15 00:47 APTT (22.0-30.0) sec Glucose 141 H (74-99) mg/dL Total Creatine Kinase 213 H 201 H (55-170) U/L Triglycerides (<150) mg/dL HDL Cholesterol (40-60) mg/dL 06/25/17 06/25/17 Range/Units 03:02 03:02 APTT 38.3 H (22.0-30.0) sec Glucose (74-99) mg/dL Total Creatine Kinase (55-170) U/L Triglycerides 150 H (<150) mg/dL HDL Cholesterol 29 L (40-60) mg/dL Thrombosis Risk Factor Assmnt - Choose All That Apply Each Risk Factor Represents 2 Points: Age 61-74 years Thrombosis Risk Factor Assessment Total Risk Factor Score: 2 Thrombosis Risk Factor Assessment Level: Low Risk Assessment and Plan (1) Chest pain Current Visit: Yes Status: Acute Code(s): R07.9 - CHEST PAIN, UNSPECIFIED SNOMED Code(s): 82705303 (2) Hypertension Current Visit: Yes Status: Acute Code(s): I10 - ESSENTIAL (PRIMARY) HYPERTENSION SNOMED Code(s): 89591877 (3) Unstable angina pectoris Current Visit: Yes Status: Acute Code(s): I20.0 - UNSTABLE ANGINA SNOMED Code(s): 5070991 Plan: Reconcile home medications. Rule out myocardial infarction. Cardiology consulted for probable stress testing versus cardiac catheterization given his exertional angina. We'll continue to follow. At this time, he is a full code. See orders otherwise. Time with Patient: Less than 30
[2017-06-25 08:31] LABS: Creatine Kinase MB 2.2 ng/mL (0.0-2.4); Troponin I 0.025 ng/mL (0.000-0.034)
[2017-06-25] MEDS ORDERED: NON-FORMULARY DRUG (Fish Oil/Dha/Epa [Fish Oil 1,200 Mg Fish Oil] 1 CAP) PO SCH (09:00)
[2017-06-25] MEDS: METOPROLOL TARTRATE 25 MG TAB PO SCH ×2 (10:35→21:04)
[2017-06-25] MEDS: LISINOPRIL 20 MG TAB PO SCH (10:35)
[2017-06-25] MEDS: ASPIRIN 325 MG TAB PO SCH (10:35)
[2017-06-25] MEDS: FENOFIBRATE 160 MG TAB PO SCH (10:36)
[2017-06-25] MEDS: NAPROXEN 250 MG TAB PO SCH (10:36)
[2017-06-25] MEDS: amLODIPine 10 MG TAB PO SCH (10:36)
--- NOTE | 2017-06-25 10:38 | ECHOF ---
Referral Reason:cp MEASUREMENTS -------- HEIGHT: 172.7 cm WEIGHT: 111.1 kg BP: 145/84 RVIDd: 3.3 cm (< 3.3) IVSd: 1.4 cm (0.6 - 1.1) LVIDd: 5.1 cm (3.9 - 5.3) LVPWd: 1.4 cm (0.6 - 1.1) IVSs: 1.9 cm LVIDs: 3.7 cm LVPWs: 1.9 cm LA Diam: 4.0 cm (2.7 - 3.8) LAESV Index (A-L): 25.88 ml/m Ao Diam: 3.9 cm (2.0 - 3.7) AV Cusp: 2.8 cm (1.5 - 2.6) MV EXCURSION: 19.089 mm (> 18.000) MV EF SLOPE: 42 mm/s (70 - 150) EPSS: 0.5 cm MV E Romario: 0.75 m/s MV DecT: 291 ms MV A Romario: 1.11 m/s MV E/A Ratio: 0.68 AR PHT: 771 ms RAP: 5.00 mmHg RVSP: 26.63 mmHg FINDINGS -------- Sinus rhythm. This was a technically adequate study. The left ventricular size is normal. There is moderate concentric left ventricular hypertrophy. O verall left ventricular systolic function is normal with, an EF between 55 - 60 %. The right ventricle is mildly enlarged. Normal LA size by volume 22+/-6 ml/m2. The right atrium is normal in size. There is mild aortic valve sclerosis. There is mild aortic regurgitation. Mild mitral annular calcification present. Mild tricuspid regurgitation present. Right ventricular systolic pressure is normal at < 35 mmHg. Trace/mild (physiologic) pulmonic regurgitation. The aortic root is dilated measuring 3.9cm. The inferior vena cava is mildly dilated. There is no pericardial effusion. CONCLUSIONS -------- 1. Sinus rhythm. 2. This was a technically adequate study. 3. The left ventricular size is normal. 4. There is moderate concentric left ventricular hypertrophy. 5. Overall left ventricular systolic function is normal with, an EF between 55 - 60 %. 6. The right ventricle is mildly enlarged. 7. Normal LA size by volume 22+/-6 ml/m2. 8. The right atrium is normal in size. 9. There is mild aortic valve sclerosis. 10. There is mild aortic regurgitation. 11. Mild mitral annular calcification present. 12. Mild tricuspid regurgitation present. 13. Right ventricular systolic pressure is normal at < 35 mmHg. 14. Trace/mild (physiologic) pulmonic regurgitation. 15. The aortic root is dilated measuring 3.9cm. 16. The inferior vena cava is mildly dilated. 17. There is no pericardial effusion. [employer]S COUNTER ASSISTANT: Ely Galarza RDCS
[2017-06-25] MEDS ORDERED: SODIUM CHLORIDE 0.9% 1,000 ML in EMPTY BAG 1 BAG IV ONE (11:28)
[2017-06-25] MEDS ORDERED: ALPRAZolam 0.25 MG TAB PO PRN (11:28)
[2017-06-25] MEDS ORDERED: ALPRAZolam 0.5 MG TAB PO PRN (11:28)
--- NOTE | 2017-06-25 12:57 | P.CRDCN ---
History of Present Illness Consult date: 06/25/17 History of present illness: Mr. Larsen is a pleasnt 77-year-old make with past medicla history significant for 4-vessel bypass grafting approximately 15-20 years ago in [place], dyslipidemia and hypertension. He follows regularly with Dr. Hobbs as an outpatient. He last saw him in February and was recommended he undergo a cardiolyte stress test which he was unable to complete secondary to claustrophobia. We have been asked to see him in consultation for complaints of chest pain. He states yesterday while he was using his snowblower he began to feel a sharp stabbing pain in his chest. This pain was intermittent in nature and persisted until he went in the house and sat down. He denies associated shortness of breath, dizziness, palpitations, nausea or vomiting. He does recall having some degree of diaphoresis but was bundled in a coat and unsure if related to being overheated. Has had no further episodes of chest pain since admission and telemetry tracings have been unremarkable. EKG on arrival reveals sinus mechanism with ST depression in precoridal lateral leads. This is a new finding. Previous EKG's have shown T-wave abnormalities in limb leads. Chest xray is negative for an acute cardiopulmonary process. Laboratory data reviewed, cardiac enzymes negative x3, potassium 4.1, magnesium 1.8, hgb 15.2, platelets 249, creatinine 1.1, LDL 44, HDL 29. Current cardiac medications include Lopressor 25 mg twice a day, Crestor 20 mg daily, fatty a 10 mg daily, aspirin 81 mg daily, amlodipine 10 mg daily, ramipril 5 mg daily and fenofibrate 134 mg. Review of Systems At the time of my exam: CONSTITUTIONAL: Denies fever. Denies chills. EYES: Denies blurred vision. Denies vision changes. Denies eye pain. EARS, NOSE, MOUTH & THROAT: Denies headache. Denies sore throat. Denies ear pain. CARDIOVASCULAR: Denies chest pain. Denies shortness of breath. Denies orthopnea. Denies PND. Denies palpitations. RESPIRATORY: Denies cough. GASTROINTESTINAL: Denies abdominal pain. Denies diarrhea. Denies constipation. Denies nausea. Denies vomiting. MUSCULOSKELETAL: Denies myalgias. INTEGUMENTARY: Denies pruitis. Denies rash. NEUROLOGIC: Denies numbness. Denies tingling. Denies weakness. PSYCHIATRIC: Denies anxiety. Denies depression. ENDOCRINE: Denies fatigue. Denies weight change. Denies polydipsia. Denies polyurina. GENITOURINARY: Denies burning, hematuria or urgency with micturation. HEMATOLOGIC: Denies history of anemia. Denies bleeding. Past Medical History Past Medical History: Hyperlipidemia, Hypertension, Prostate Disorder, Thyroid Disorder Additional Past Medical History / Comment(s): carpel tunnel History of Any Multi-Drug Resistant Organisms: None Reported Past Surgical History: Cholecystectomy, Coronary Bypass/CABG Additional Past Surgical History / Comment(s): hemorrhoid, CABG X4 Past Anesthesia/Blood Transfusion Reactions: No Reported Reaction Past Psychological History: No Psychological Hx Reported Smoking Status: Never smoker Past Alcohol Use History: None Reported Past Drug Use History: None Reported - Past Family History Father Family Medical History: No Reported History Additional Family Medical History / Comment(s): Smoker Mother Family Medical History: No Reported History Medications and Allergies Home Medications Medication Instructions Recorded Confirmed Type Aspirin EC [Ecotrin Low Dose] 81 mg PO QAM 07/23/16 06/24/17 History Calcium Polycarbophil [Fibercon] 1,250 mg PO DAILY PRN 07/23/16 06/24/17 History Ezetimibe [Zetia] 10 mg PO HS 07/23/16 06/24/17 History Fenofibrate,Micronized 134 mg PO QAM 07/23/16 06/24/17 History [Fenofibrate] Fish Oil/Dha/Epa [Fish Oil 1,200 1 cap PO QAM 07/23/16 06/24/17 History mg Fish Oil] Levothyroxine Sodium [Synthroid] 125 mcg PO QAM 07/23/16 06/24/17 History Metoprolol Tartrate [Lopressor] 25 mg PO BID 07/23/16 06/24/17 History Mineral Oil 30 ml PO HS 07/23/16 06/24/17 History Naproxen Sodium [Aleve] 440 mg PO QAM 07/23/16 06/24/17 History Nystatin/Triamcin Cream [Mycolog 1 applic TOPICAL HS PRN 07/23/16 06/24/17 History 100,000-0.1 Unit/gm-% Cream] Ramipril [Altace] 5 mg PO QAM 07/23/16 06/24/17 History Rosuvastatin Calcium [Crestor] 20 mg PO HS 07/23/16 06/24/17 History amLODIPine [Norvasc] 10 mg PO QAM 07/23/16 06/24/17 History metFORMIN HCL [Glucophage] 500 mg PO QAM 07/23/16 06/24/17 History Allergies Allergy/AdvReac Type Severity Reaction Status Date / Time codeine Allergy Unknown Verified 06/24/17 18:43 Penicillins Allergy Unknown Verified 06/24/17 18:43 Physical Exam Vitals: Vital Signs Temp Pulse Pulse Resp BP BP Pulse Ox 06/25/17 07:47 98.0 F 66 18 125/77 94 L 06/25/17 03:00 18 06/25/17 01:10 97.9 F 65 18 145/84 96 06/24/17 23:53 68 18 141/85 06/24/17 21:33 78 18 140/87 06/24/17 18:20 98.2 F 77 20 161/79 95 Intake and Output 06/24/17 06/25/17 06/25/17 22:59 06:59 14:59 Intake Total 184.667 Balance 184.667 Intake: Intake, IV Titration 184.667 Amount Heparin Sod,Pork in 0.45% 184.667 NaCl 25,000 unit In 0.45 % NaCl 1 500ml.bag @ 9 UNITS/KG/HR 20 mls/hr IV .Q24H [facility] Rx#:[id number] Other: Weight 111.13 kg 111.13 kg Blood pressure 125/77 heart rate 66 afebrile GENERAL: This is a 77-year-old male in no apparent distress at the time of my examination. Obese HEENT: Head is atraumatic, normocephalic. Pupils are equal, round. Sclerae anicteric. Conjunctivae are clear. Mucous membranes of the mouth are moist. Neck is supple. There is no jugular venous distention. No carotid bruit is heard. LUNGS: Clear to auscultation no wheezes, rales or rhonchi. No chest wall tenderness is noted on palpation or with deep breathing. HEART: Regular rate and rhythm without murmurs, rubs or gallops. S1 and S2 heard. ABDOMEN: Soft, nontender. Bowel sounds are heard. No organomegaly noted. EXTREMITIES: 2+ peripheral pulses with no evidence of peripheral edema and no calf tenderness noted. NEUROLOGIC: Patient is awake, alert and oriented x3. Results 06/25/17 03:02 06/24/17 19:15 Cardiac Enzymes 06/24/17 06/24/17 06/25/17 Range/Units 19:15 19:15 00:47 AST 28 (17-59) U/L CK-MB (CK-2) 2.4 2.1 (0.0-2.4) ng/mL Troponin I 0.019 0.022 (0.000-0.034) ng/mL Coagulation 06/24/17 06/25/17 Range/Units 19:15 03:02 PT 10.6 (9.0-12.0) sec APTT 23.1 38.3 H (22.0-30.0) sec Lipids 06/25/17 Range/Units 03:02 Triglycerides 150 H (<150) mg/dL Cholesterol 103 (<200) mg/dL HDL Cholesterol 29 L (40-60) mg/dL CBC 06/24/17 06/25/17 Range/Units 19:15 03:02 WBC 8.6 (3.8-10.6) k/uL RBC 4.74 (4.30-5.90) m/uL Hgb 15.2 (13.0-17.5) gm/dL Hct 44.6 (39.0-53.0) % Plt Count 249 236 (150-450) k/uL Comprehensive Metabolic Panel 06/24/17 Range/Units 19:15 Sodium 145 (137-145) mmol/L Potassium 4.1 (3.5-5.1) mmol/L Chloride 106 (98-107) mmol/L Carbon Dioxide 29 (22-30) mmol/L BUN 16 (9-20) mg/dL Creatinine 1.10 (0.66-1.25) mg/dL Glucose 141 H (74-99) mg/dL Calcium 10.0 (8.4-10.2) mg/dL AST 28 (17-59) U/L ALT 43 (21-72) U/L Alkaline Phosphatase 45 (38-126) U/L Total Protein 7.5 (6.3-8.2) g/dL Albumin 4.3 (3.5-5.0) g/dL Current Medications Generic Name Dose Route Start Last Admin Trade Name Freq PRN Reason Stop Dose Admin Amlodipine Besylate 10 mg 06/25/17 09:00 Norvasc PO QAM [facility] Aspirin 325 mg 06/25/17 09:00 Aspirin PO DAILY [facility] Atorvastatin Calcium 40 mg 06/24/17 21:00 06/24/17 22:31 Lipitor PO 40 mg HS [facility] Administration Calcium Polycarbophil 1,250 mg 06/24/17 20:29 Fibercon PO DAILY PRN Constipation Ezetimibe 10 mg 06/24/17 21:00 06/24/17 22:30 Zetia PO 10 mg HS [facility] Administration Fenofibrate 160 mg 06/25/17 09:00 Lofibra PO QAM [facility] Heparin Sodium (Porcine) 0 unit 06/24/17 20:26 Heparin IV Q6HR PRN Low PTT Protocol Heparin Sodium/Sodium Chloride 500 mls @ 20 mls/hr 06/24/17 20:30 06/25/17 06 :43 25,000 unit/ Sodium Chloride IV 11.96 units/kg/hr .Q24H [facility] 26.6 mls/hr Protocol Titration 9 UNITS/KG/HR Levothyroxine Sodium 125 mcg 06/25/17 06:30 06/25/17 06:42 Synthroid PO Not Given QAM@0630 [facility] Lisinopril 20 mg 06/25/17 09:00 Zestril PO QAM [facility] Metformin HCl 500 mg 06/25/17 07:30 Glucophage PO W/BRKFST [facility] Metoprolol Tartrate 25 mg 06/24/17 21:00 06/24/17 22:30 Lopressor PO 25 mg BID [facility] Administration Naproxen 500 mg 06/25/17 09:00 Naprosyn PO QAM [facility] Nitroglycerin 1 inch 06/25/17 00:00 06/25/17 06:42 Nitro-Bid Oint TOPICAL Not Given Q6HR [facility] Nitroglycerin 0.4 mg 06/24/17 20:26 Nitrostat SUBLINGUAL Q5M PRN Chest Pain Nystatin 1 applic 06/24/17 20:29 Mycostatin Cream TOPICAL HS PRN Skin Irritation Triamcinolone Acetonide 1 applic 06/24/17 20:43 Kenalog TOPICAL HS PRN Skin Irritation Intake and Output 06/24/17 06/25/17 06/25/17 22:59 06:59 14:59 Intake Total 184.667 Balance 184.667 Intake: Intake, IV Titration 184.667 Amount Heparin Sod,Pork in 0.45% 184.667 NaCl 25,000 unit In 0.45 % NaCl 1 500ml.bag @ 9 UNITS/KG/HR 20 mls/hr IV .Q24H [facility] Rx#:[id number] Other: Weight 111.13 kg 111.13 kg 06/25/17 03:02 06/24/17 19:15 Assessment and Plan Assessment: ASSESSMENT 1. Unstable angina 2. History of coronary artery bypass grafting 3. Coronary artery disease 4. Dyslipidemia 5. Hypertension PLAN Continue to obtain serial cardiac enzymes. Obtain 2-D echocardiogram and Doppler study to assess cardiac structure and function. Continue with heparin infusion. I recommend proceeding with cardiac catheterization. This has been discussed with his primary glass rolling machine operator Dr. Hobbs. He will he boarded for tomorrow at noon. I have discussed the risks, benefits and alternative therapies for the above-mentioned procedure and for both sedation/analgesia as well as necessary blood product administration, if indicated, as they pertain to this patient. The patient has indicated understanding and acceptance of the risks and procedures discussed. Questions have been answered appropriately and he is agreeable to move forward with the above stated procedure. The above impression and plan of care have been discussed and directed by the signing physician. Scarlett Granger, nurse practitioner, acting as scribe for signing physician.
[2017-06-25] MEDS: ATORVASTATIN 40 MG TAB PO SCH (21:04)
[2017-06-25] MEDS: EZETIMIBE 10 MG TAB PO SCH (21:04)
[2017-06-25] MEDS: HEPARIN SOD,PORK IN 0.45% NACL 25,000 UNIT in 0.45% NACL 1 500ML.BAG IV SCH (21:05)
[2017-06-26] MEDS: NITROGLYCERIN OINT 1 INCH/GM PACKET TOPICAL SCH ×2 (03:41→12:17)
[2017-06-26] MEDS: ASPIRIN 325 MG TAB PO SCH (06:40)
[2017-06-26] MEDS: LISINOPRIL 20 MG TAB PO SCH (06:40)
[2017-06-26] MEDS: LEVOTHYROXINE 125 MCG TAB PO SCH (06:41)
[2017-06-26] MEDS: METOPROLOL TARTRATE 25 MG TAB PO SCH (06:41)
[2017-06-26] MEDS: FENOFIBRATE 160 MG TAB PO SCH (06:41)
[2017-06-26] MEDS: amLODIPine 10 MG TAB PO SCH (06:41)
[2017-06-26 07:11] LABS: Mean Platelet Volume 8.2; Platelet Count 293 k/uL (150-450)
--- NOTE | 2017-06-26 08:50 | P.PN ---
Subjective Progress Note Date: 06/26/17 Principal diagnosis: Unstable angina. The patient is a 77-year-old diabetic male with known history of CAD. The patient is now scheduled for cardiac catheterization later today. He seems somewhat anxious. We'll follow appropriate color protocols for premedication. Otherwise, no chest pain stated this morning Objective - Vital Signs Vital signs: Vital Signs Temp 98.0 F 06/26/17 08:00 Pulse 63 06/26/17 08:00 Resp 18 06/26/17 08:00 BP 134/78 06/26/17 08:00 Pulse Ox 96 06/26/17 08:00 Intake & Output 06/25/17 06/26/17 06/26/17 18:59 06:59 18:59 Intake Total 675.333 Balance 675.333 Intake: Intake, IV Titration 315.333 Amount Heparin Sod,Pork in 0.45% 315.333 NaCl 25,000 unit In 0.45 % NaCl 1 500ml.bag @ 9 UNITS/KG/HR 20 mls/hr IV .Q24H [facility] Rx#:[id number] Oral 360 Other: Voiding Method Toilet Toilet - Constitutional General appearance: Present: obese - EENT Eyes: Absent: abnormal pupil - Respiratory Respiratory: bilateral: CTA - Cardiovascular Rhythm: regular Heart sounds: normal: S1, S2 - Gastrointestinal General gastrointestinal: Present: soft. Absent: tenderness - Psychiatric Psychiatric: Present: A&O x's 3, appropriate affect - Labs CBC & Chem 7: 06/26/17 06:09 06/24/17 19:15 Labs: Abnormal Lab Results - Last 24 Hours (Table) 06/25/17 06/25/17 Range/Units 13:59 23:25 APTT 42.2 H 73.2 H (22.0-30.0) sec Assessment and Plan (1) Chest pain Current Visit: Yes Status: Acute Code(s): R07.9 - CHEST PAIN, UNSPECIFIED SNOMED Code(s): 78837384 (2) Hypertension Current Visit: Yes Status: Acute Code(s): I10 - ESSENTIAL (PRIMARY) HYPERTENSION SNOMED Code(s): 26706095 (3) Unstable angina pectoris Current Visit: Yes Status: Acute Code(s): I20.0 - UNSTABLE ANGINA SNOMED Code(s): 4875056 Plan: Await cardiac catheterization today. No peripheral continue to follow. She orders otherwise.
[2017-06-26] MEDS ORDERED: IV FLUID CONTINUATION 900 ML IV ONE (11:52)
[2017-06-26] MEDS ORDERED: MIDAZOLAM 2 MG/2 ML VIAL ONE (12:04)
[2017-06-26] MEDS ORDERED: MIDAZOLAM 2 MG/2 ML VIAL IV ONE (12:10)
[2017-06-26] MEDS ORDERED: fentaNYL (PF) 50 MCG/ML 2 ML AMP ONE (12:13)
[2017-06-26] MEDS ORDERED: LIDOCAINE 2% INJ 20 MG/ML SQ ONE (12:14)
[2017-06-26] MEDS ORDERED: fentaNYL (PF) 50 MCG/ML 2 ML AMP IV ONE (12:15)
[2017-06-26] MEDS: NAPROXEN 250 MG TAB PO SCH (12:17)
[2017-06-26] MEDS ORDERED: NITROGLYCERIN SL TABS 0.4 MG TAB SUBLINGUAL ONE ×2 (12:19→12:20)
[2017-06-26] MEDS ORDERED: IOHEXOL 350 MG/ML 125ML BOTTLE INJ ONE (12:48)
[2017-06-26] MEDS ORDERED: RX INFO: IV CONTRAST WAS GIVEN 1 EACH MISC MISCELLANE PRN (13:08)
[2017-06-26 13:39] VITALS: TEMP 97.9
--- NOTE | 2017-06-26 14:03 | CC ---
CARDIAC CATHETERIZATION REPORT Mr. Larsen was admitted to the hospital with symptoms suggestive of unstable angina syndrome. This patient is quite claustrophobic and he could not complete his stress test last time. In view of his history of previous coronary artery bypass surgery, patient was recommended to have a cardiac catheterization for definitive diagnosis. Patient was given intravenous sedation with Versed and fentanyl and left cardiac catheterization was performed without any complications. PROCEDURE: The right groin was prepped and draped in the usual manner and the skin was infiltrated with 2% Xylocaine. The right femoral artery was entered using Seldinger technique. A #6-Greek sheath was placed in. Selective coronary angiography was then performed in multiple projections. Left ventricular pressures were obtained. Aortic root injection was performed and selective injection into the vein graft and was performed. Moderate sedation was used. Total sedation time is 31 minute. HEMODYNAMICS: The left ventricular end-diastolic pressure is 16 to 18 mmHg. Prior to angiograph, no gradient is noted across the aortic valve. SELECTIVE CORONARY ANGIOGRAPHY: Left main coronary artery is normally patent. LAD is totally occluded in its mid portion after the origin of septal and diagonal branch. Mid circumflex coronary artery is totally occluded up to the origin of the first obtuse marginal branch. Saphenous vein graft to the right coronary artery is ectatic and is patent with good filling up the PLV and PDA branch noted. Saphenous vein graft to the distal OM branch and PLV branch of the circumflex coronary artery is patent. Saphenous vein graft to the first obtuse marginal branch is totally occluded. MCGILL graft to the LAD is patent and good filling of the distal LAD is noted. RECOMMENDATIONS: Continue medical treatment and risk factor modification. MMODL / IJN: [id number] /
--- NOTE | 2017-06-26 14:24 | P.DS ---
Providers Date of admission: 06/25/17 14:17 Attending physician: Shaun Desai Consults: 06/24/17 20:26 Consult Physician Urgent Consulting Provider: Jasper Dougherty Consult Reason/Comments: cp Do you want consulting provider notified?: Yes Primary care physician: Shaun Desai - Discharge Diagnosis(es) (1) Chest pain Current Visit: Yes Status: Acute (2) Hypertension Current Visit: Yes Status: Acute (3) Unstable angina pectoris Current Visit: Yes Status: Acute Hospital Course: This discharge summary 77-year-old white male who had significant chest pain after issues shoveling snow. The patient apparently cardiac catheterization related to his symptomatology, history and previous cardiac history. Fortunately, the patient did not have any significant findings and will be discharged once cleared by cardiology. Patient Condition at Discharge: Fair Plan - Discharge Summary Discharge Rx Participant: No New Discharge Prescriptions: Continue RX: Mineral Oil 30 ml PO HS RX: Calcium Polycarbophil [Fibercon] 1,250 mg PO DAILY PRN PRN Reason: Constipation RX: Metoprolol Tartrate [Lopressor] 25 mg PO BID RX: Aspirin EC [Ecotrin Low Dose] 81 mg PO QAM RX: Rosuvastatin Calcium [Crestor] 20 mg PO HS RX: Naproxen Sodium [Aleve] 440 mg PO QAM RX: Fish Oil/Dha/Epa [Fish Oil 1,200 mg Fish Oil] 1 cap PO QAM RX: Ezetimibe [Zetia] 10 mg PO HS RX: metFORMIN HCL [Glucophage] 500 mg PO QAM RX: Levothyroxine Sodium [Synthroid] 125 mcg PO QAM RX: Fenofibrate,Micronized [Fenofibrate] 134 mg PO QAM RX: amLODIPine [Norvasc] 10 mg PO QAM RX: Ramipril [Altace] 5 mg PO QAM RX: Nystatin/Triamcin Cream [Mycolog 100,000-0.1 Unit/gm-% Cream] 1 applic TOPICAL HS PRN PRN Reason: Skin Irritation Discharge Medication List Aspirin EC [Ecotrin Low Dose] 81 mg PO QAM 07/23/16 [History] Calcium Polycarbophil [Fibercon] 1,250 mg PO DAILY PRN 07/23/16 [History] Ezetimibe [Zetia] 10 mg PO HS 07/23/16 [History] Fenofibrate,Micronized [Fenofibrate] 134 mg PO QAM 07/23/16 [History] Fish Oil/Dha/Epa [Fish Oil 1,200 mg Fish Oil] 1 cap PO QAM 07/23/16 [History] Levothyroxine Sodium [Synthroid] 125 mcg PO QAM 07/23/16 [History] Metoprolol Tartrate [Lopressor] 25 mg PO BID 07/23/16 [History] Mineral Oil 30 ml PO HS 07/23/16 [History] Naproxen Sodium [Aleve] 440 mg PO QAM 07/23/16 [History] Nystatin/Triamcin Cream [Mycolog 100,000-0.1 Unit/gm-% Cream] 1 applic TOPICAL HS PRN 07/23/16 [History] Ramipril [Altace] 5 mg PO QAM 07/23/16 [History] Rosuvastatin Calcium [Crestor] 20 mg PO HS 07/23/16 [History] amLODIPine [Norvasc] 10 mg PO QAM 07/23/16 [History] metFORMIN HCL [Glucophage] 500 mg PO QAM 07/23/16 [History] Follow up Appointment(s)/Referral(s): Shaun Desai MD [Primary Care Provider] - 1 Week
[2017-06-26 16:24] VITALS: BP 131/67; PULSE 72
== END 2017-06-26 18:35 | disposition home or self-care (01) ==
LOC: EC 18:18 → 3OBS 20:26 → INTOOBSV 06-25 14:17 → OBSVTOIN 06-25 14:17 → UNDODISIN 06-26 18:35
PROVIDERS: ADMIT Family Medicine; ATTEND Family Medicine
PROC: 4A023N7 Measurement of Cardiac Sampling and Pressure, Left Heart, Percutaneous Approach (ICD-10-PCS; principal; 2017-06-25)
PROC: B2131ZZ Fluoroscopy of Multiple Coronary Artery Bypass Grafts using Low Osmolar Contrast (ICD-10-PCS; 2017-06-25)
PROC: B2111ZZ Fluoroscopy of Multiple Coronary Arteries using Low Osmolar Contrast (ICD-10-PCS; 2017-06-25)
DX: I25.110 Atherosclerotic heart disease of native coronary artery with unstable angina pectoris (principal); I25.710 Atherosclerosis of autologous vein coronary artery bypass graft(s) with unstable angina pectoris; I25.82 Chronic total occlusion of coronary artery; E11.9 Type 2 diabetes mellitus without complications; E07.9 Disorder of thyroid, unspecified; E78.5 Hyperlipidemia, unspecified; N42.9 Disorder of prostate, unspecified; I10 Essential (primary) hypertension; Z90.49 Acquired absence of other specified parts of digestive tract; Z95.1 Presence of aortocoronary bypass graft; Z79.899 Other long term (current) drug therapy; Z79.84 Long term (current) use of oral hypoglycemic drugs; Z79.82 Long term (current) use of aspirin; Z79.1 Long term (current) use of non-steroidal anti-inflammatories (NSAID); Z88.0 Allergy status to penicillin; Z88.5 Allergy status to narcotic agent; F40.240 Claustrophobia; E66.9 Obesity, unspecified; Z68.37 Body mass index [BMI] 37.0-37.9, adult
CPT/HCPCS: 99152; 99153; 96366 ×3; 96376 ×2; 96365; 96375; 99285; 36415; 93005; 93306; 93459; 93567; 83880; 80061; 80053; 82550 ×2; 82553 ×2; 83735; 84484 ×2; 85025; 85049 ×2; 85610; 85730 ×2; 71046; G0378 ×4; C1760; C1894; C1769; J2001; J2250; J1644 ×4; J3010; J1885; Q9967

== ENCOUNTER → 2017-12-17 | Outpatient (CLI) | payer MEDICARE, BC ==
--- NOTE | 2017-12-17 18:00 | US ---
EXAMINATION TYPE: US carotid duplex BILAT DATE OF EXAM: 12/17/2017 COMPARISON: NONE CLINICAL HISTORY: R55 Syncope,R42 Dizziness/Fatigue. Dizzy EXAM MEASUREMENTS: RIGHT: Peak Systolic Velocity (PSV) cm/sec ----- Right CCA: 92.9 ----- Right ICA: 82.7 ----- Right ECA: 95.8 ICA/CCA ratio: 0.9 RIGHT: End Diastole cm/sec ----- Right CCA: 14.4 ----- Right ICA: 23.1 ----- Right ECA: 10.0 LEFT: Peak Systolic Velocity (PSV) cm/sec ----- Left CCA: 104.8 ----- Left ICA: 109.7 ----- Left ECA: 119.4 ICA/CCA ratio: 1.0 LEFT: End Diastole cm/sec ----- Left CCA: 16.0 ----- Left ICA: 19.2 ----- Left ECA: 14.4 VERTEBRALS (direction of flow): Right Vertebral: Antegrade Left Vertebral: Antegrade Rhythm: Normal No significant stenosis seen IMPRESSION: There is antegrade flow in the vertebral arteries. The images and measurements suggest less than 20% stenosis in both internal carotid arteries. Criteria for Assigning % of Stenosis / Diameter reduction (Estimation based on the indirect measurements of the internal carotid artery velocities (ICA PSV). 1. Normal (no stenosis)=ICA PSV < 125 cm/s: ratio < 2.0: ICA EDV<40 cm/s. 2. Less than 50% stenosis=ICA PSV < 125 cm/s: ratio < 2.0: ICA EDV<40 cm/s. 3. 50 to 69% stenosis=ICA PSV of 125 to 230 cm/s: ration 2.0 ? 4.0: ICA EDV 40-100 cm/s. 4. Greater than 70% stenosis to near occlusion= ICA PSV > 230 cm/s: ratio > 4.0: ICA EDV > 100 cm/s. 5. Near occlusion= ICA PSV velocities may be low or undetectable: variable ratio and ICA EDV. 6. Total occlusion=unable to detect flow.
--- NOTE | 2017-12-17 18:33 | CT ---
EXAMINATION TYPE: CT brain wo con DATE OF EXAM: 12/17/2017 COMPARISON: NONE HISTORY: Dizziness and fatigue CT DLP: mGycm Automated exposure control for dose reduction was used. FINDINGS: There is mild cerebral cortical atrophy. There is no mass effect nor midline shift. There is no sign of intracranial hemorrhage. The calvarium is intact. IMPRESSION: MILD CEREBRAL ATROPHY. NO ACUTE INTRACRANIAL ABNORMALITY.
--- NOTE | 2017-12-18 16:44 | ECHOF ---
Referral Reason: MEASUREMENTS -------- HEIGHT: 172.7 cm WEIGHT: 108.9 kg BP: IVSd: 1.2 cm (0.6 - 1.1) LVIDd: 3.9 cm (3.9 - 5.3) LVPWd: 1.2 cm (0.6 - 1.1) IVSs: 1.3 cm LVIDs: 2.9 cm LVPWs: 1.5 cm LAESV Index (A-L): 24.15 ml/m Ao Diam: 4.0 cm (2.0 - 3.7) AV Cusp: 2.2 cm (1.5 - 2.6) LA Diam: 3.8 cm (2.7 - 3.8) EPSS: 0.6 cm MV E Romario: 0.86 m/s MV DecT: 262 ms MV A Romario: 1.10 m/s MV E/A Ratio: 0.79 AR PHT: 543 ms RAP: 5.00 mmHg RVSP: 34.33 mmHg MV EF SLOPE: 113.62 mm/s (70 - 150) MV EXCURSION: 2.19 cm (> 18.000) FINDINGS -------- Sinus rhythm. This was a technically adequate study. The left ventricular size is normal. There is mild concentric left ventricular hypertrophy. Overa ll left ventricular systolic function is normal with, an EF between 55 - 60 %. The right ventricle is normal in size and function. Normal LA size by volume 22+/-6 ml/m2. The right atrium is normal in size. Aortic valve is trileaflet and is mildly thickened. There is mild aortic regurgitation. There is no evidence of aortic stenosis. The mitral valve leaflets are mildly thickened. There is trace to mild mitral regurgitation. Mild tricuspid regurgitation present. Right ventricular systolic pressure is normal at < 35 mmHg. There is borderline pulmonary hypertension. The right ventricular systolic pressure, as measured b y Doppler, is 34.33mmHg. Trace/mild (physiologic) pulmonic regurgitation. The aortic root size is normal. Normal inferior vena cava with normal inspiratory collapse consistent with estimated right atrial pre ssure of 5 mmHg. There is no pericardial effusion. CONCLUSIONS -------- 1. Sinus rhythm. 2. This was a technically adequate study. 3. The left ventricular size is normal. 4. There is mild concentric left ventricular hypertrophy. 5. Overall left ventricular systolic function is normal with, an EF between 55 - 60 %. 6. Normal LA size by volume 22+/-6 ml/m2. 7. Aortic valve is trileaflet and is mildly thickened. 8. There is mild aortic regurgitation. 9. The mitral valve leaflets are mildly thickened. 10. There is trace to mild mitral regurgitation. 11. Mild tricuspid regurgitation present. 12. There is borderline pulmonary hypertension. 13. The right ventricular systolic pressure, as measured by Doppler, is 34.33mmHg. 14. Trace/mild (physiologic) pulmonic regurgitation. 15. The aortic root size is normal. DERRICK CAR OPERATOR: Aguila Duran RDCS
== END | disposition home or self-care (01) ==
LOC: RADCTMAIN 15:55
PROVIDERS: ATTEND Family Medicine
DX: G31.9 Degenerative disease of nervous system, unspecified (principal); R55 Syncope and collapse; R53.83 Other fatigue; Z88.0 Allergy status to penicillin; Z88.2 Allergy status to sulfonamides; Z88.5 Allergy status to narcotic agent
CPT/HCPCS: 70450; 93306; 93880

== ENCOUNTER 2018-02-25 22:20 | Emergency (ER) | payer MEDICARE, BC ==
[2018-02-25 22:47] VITALS: RESP 18
--- NOTE | 2018-02-25 22:57 | ED ---
Lower Extremity Injury HPI - General Chief Complaint: Extremity Injury, Lower Stated Complaint: foot pain Time Seen by Provider: 02/25/18 22:48 Source: patient, RN notes reviewed Mode of arrival: wheelchair Limitations: no limitations - History of Present Illness Initial Comments: This is a 77-year-old male who presents to the emergency department with chief complaint of right foot injury. Patient states approximately 3 hours ago he was walking outside to get his wheel barrel. He states that he took a step and felt a snap in the bottom of his right foot. He states that he stumbled and fell to the ground. He states he was able to get back up, bear weight and has been ambulating since that time with difficulty. He denies any other injuries or trauma. Denies head, neck or back pain. Denies loss of consciousness, chest pain or shortness of breath, abdominal pain, nausea or vomiting, numbness or tingling. - Related Data Home Medications Medication Instructions Recorded Confirmed Aspirin EC [Ecotrin Low Dose] 81 mg PO QAM 07/23/16 02/25/18 Calcium Polycarbophil [Fibercon] 1,250 mg PO DAILY PRN 07/23/16 02/25/18 Ezetimibe [Zetia] 10 mg PO HS 07/23/16 02/25/18 Fenofibrate,Micronized 134 mg PO QAM 07/23/16 02/25/18 [Fenofibrate] Fish Oil/Dha/Epa [Fish Oil 1,200 1 cap PO QAM 07/23/16 02/25/18 mg Fish Oil] Levothyroxine Sodium [Synthroid] 125 mcg PO QAM 07/23/16 02/25/18 Metoprolol Tartrate [Lopressor] 25 mg PO BID 07/23/16 02/25/18 Mineral Oil 30 ml PO HS 07/23/16 02/25/18 Naproxen Sodium [Aleve] 440 mg PO QAM 07/23/16 02/25/18 Nystatin/Triamcin Cream [Mycolog 1 applic TOPICAL HS PRN 07/23/16 02/25/18 100,000-0.1 Unit/gm-% Cream] Ramipril [Altace] 5 mg PO QAM 07/23/16 02/25/18 Rosuvastatin Calcium [Crestor] 20 mg PO HS 07/23/16 02/25/18 amLODIPine [Norvasc] 10 mg PO QAM 07/23/16 02/25/18 metFORMIN HCL [Glucophage] 500 mg PO QAM 07/23/16 02/25/18 Allergies Allergy/AdvReac Type Severity Reaction Status Date / Time codeine Allergy Unknown Verified 02/25/18 23:19 Penicillins Allergy Unknown Verified 02/25/18 23:19 Review of Systems ROS Statement: Those systems with pertinent positive or pertinent negative responses have been documented in the HPI. ROS Other: All systems not noted in ROS Statement are negative. Past Medical History Past Medical History: Hyperlipidemia, Hypertension, Prostate Disorder, Thyroid Disorder Additional Past Medical History / Comment(s): carpel tunnel History of Any Multi-Drug Resistant Organisms: None Reported Past Surgical History: Cholecystectomy, Coronary Bypass/CABG Additional Past Surgical History / Comment(s): hemorrhoid, CABG X4 Past Anesthesia/Blood Transfusion Reactions: No Reported Reaction Past Psychological History: No Psychological Hx Reported Smoking Status: Never smoker Past Alcohol Use History: None Reported Past Drug Use History: None Reported - Past Family History Father Family Medical History: No Reported History Additional Family Medical History / Comment(s): Smoker Mother Family Medical History: No Reported History General Exam - General Exam Comments Initial Comments: General: Awake and alert, well-developed; in no apparent distress. HEENT: Head atraumatic, normocephalic. Pupils are equal, round and reactive to light. Extraocular movements intact. Oropharynx moist without erythema or exudate. Neck: Supple. Normal ROM. Cardiovascular: Regular rate and rhythm. No murmurs, rubs or gallops. Chest symmetrical. Respiratory: Lungs clear to auscultation bilaterally. No wheezes, rales or rhonchi. Normal respiratory effort with no use of accessory muscles. Musculoskeletal: Full range of motion of the right ankle and foot. There is tenderness along the fifth metatarsal and pinpoint tenderness at the medial mid plantar surface. No swelling, erythema, ecchymosis noted. Sensation is intact. Pedal pulses are 2+ equal and palpable bilaterally. No obvious gross deformity. Skin: [place], warm and dry without rashes or lesions. Neurological: Alert and oriented x3. CN II-XII grossly intact. Speech is fluent and answers are appropriate. No focal neuro deficits. Psychiatric: Normal mood and affect. No overt signs of depression or anxiety noted. Limitations: no limitations Course Vital Signs 02/25/18 22:45 Temperature 97.8 F Pulse Rate 61 Respiratory 18 Rate Blood Pressure 149/85 O2 Sat by Pulse 96 Oximetry Medical Decision Making - Medical Decision Making This is a 77-year-old male who presents to the emergency department with chief complaint of right foot injury. Patient reports feeling a snap in the bottom of his foot while walking approximately 3 hours ago. He has been bearing weight and ambulating, however experiences pain while doing so. X-ray of the right foot reveals no acute abnormalities. Recommended that patient follow up with orthopedics for further evaluation and repeat x-rays if pain persists beyond 7-10 days. Recommended Tylenol and ice. Patient's vital signs are stable and he is in no acute distress. He will be discharged home at this time. Patient is in agreement with this plan and voices understanding. All questions were answered. Disposition Clinical Impression: Right foot pain Disposition: HOME SELF-CARE Condition: Good Instructions: Foot Sprain (ED), R.I.C.E. Treatment (ED) Additional Instructions: Follow-up with orthopedics, Dr. Hare, for further evaluation and repeat x- rays if pain persists beyond 7-10 days. Please follow up with primary care provider within 1-2 days. Return to emergency department if symptoms should worsen or any concerns arise. Is patient prescribed a controlled substance at d/c from ED?: No Referrals: Shaun Desai MD [Primary Care Provider] - 1-2 days Shahram Hare DO [Doctor of Osteopathic Medicine] - 1-2 days Time of Disposition: 23:56
--- NOTE | 2018-02-25 23:49 | XR ---
EXAMINATION TYPE: XR foot complete RT DATE OF EXAM: 02/25/2018 COMPARISON: NONE HISTORY: Fall. Foot pain. TECHNIQUE: 3 views FINDINGS: Metatarsals are intact. There is an Achilles calcaneal spur. I see no fracture nor dislocat ion. The toes appear intact. IMPRESSION: No acute abnormality of the right foot. Calcaneal spurring.
[2018-02-26 00:14] VITALS: BP 135/72; PULSE 72; TEMP 98.4
== END 2018-02-26 00:14 | disposition home or self-care (01) ==
LOC: EC 22:20
DX: M79.671 Pain in right foot (principal); E78.5 Hyperlipidemia, unspecified; I10 Essential (primary) hypertension; E07.9 Disorder of thyroid, unspecified; Z79.82 Long term (current) use of aspirin; Z79.899 Other long term (current) drug therapy; Z79.1 Long term (current) use of non-steroidal anti-inflammatories (NSAID); Z79.84 Long term (current) use of oral hypoglycemic drugs; Z88.0 Allergy status to penicillin; Z88.5 Allergy status to narcotic agent; Z95.1 Presence of aortocoronary bypass graft
CPT/HCPCS: 99283

== ENCOUNTER → 2018-12-19 | Outpatient (CLI) | payer MEDICARE, BC ==
--- NOTE | 2018-12-19 11:59 | CT ---
EXAMINATION TYPE: CT brain wo con DATE OF EXAM: 12/19/2018 COMPARISON: 12/17/2017 HISTORY: Mild cognitive impairment-memory issues CT DLP: 1121 mGycm Automated exposure control for dose reduction was used. FINDINGS: There is mild cerebral cortical atrophy. There is no mass effect nor midline shift. There is no sign of intracranial hemorrhage. The calvarium is intact. Calcification left basal ganglia. Faint low-attenuation the white matter is nonspecific but most typi mook remote microvascular ischemia. IMPRESSION: GENERATIVE AND NONSPECIFIC WHITE MATTER CHANGES MOST TYPICAL REMOTE MICROVASCULAR ISCHEMIA.
== END | disposition home or self-care (01) ==
LOC: RADCTMAIN 11:20
PROVIDERS: ATTEND Family Medicine
DX: I67.82 Cerebral ischemia (principal); R90.89 Other abnormal findings on diagnostic imaging of central nervous system; Z88.5 Allergy status to narcotic agent; Z88.0 Allergy status to penicillin
CPT/HCPCS: 70450

== ENCOUNTER 2019-02-04 17:21 | Emergency (ER) | payer MEDICARE, BC ==
[2019-02-04 17:43] VITALS: BP 147/84; PULSE 67; RESP 18; TEMP 98.2
[2019-02-04] MEDS ORDERED: KETOROLAC 30 MG/ML 1 ML VIAL IM STA (18:15)
[2019-02-04] MEDS ORDERED: LIDOCAINE 5% PATCH TOPICAL STA (18:15)
[2019-02-04] MEDS ORDERED: HYDROcodone/APAP 5-325MG 1 EACH TAB PO STA (18:16)
--- NOTE | 2019-02-04 18:39 | ED ---
General Adult HPI - General Chief complaint: Abdominal Pain Stated complaint: Rib pain Time Seen by Provider: 02/04/19 18:01 Source: patient Mode of arrival: wheelchair Limitations: no limitations - History of Present Illness Initial comments: 78 year-old male patient presents to the emergency department today for evaluation of left rib pain and right hand pain. Patient states 3 days ago he was moving large rocks from around his ponds. Patient states onset of left rib pain afterwards. Patient states the pain starts in his left back and radiates around to the front. Patient states it hurts when he moves, coughs, sneezes, or laughs. Patient states it hurts to take a deep breath. Denies any hemoptysis or sputum production. Denies any abdominal pain, nausea, or vomiting. Denies any hematuria, dysuria, urinary frequency, urinary urgency. Patient denies any history of rib injury. Patient states he is also having discomfort to the right hand around the base of the thumb. Patient states this started after moving the rocks as well. Denies any numbness or tingling to the hand. Denies any previous injury to the hand. Patient denies any headache, neck pain, back pain, sweats, shortness of breath, dizziness, weakness, abdominal pain, or difficulties with bowel movements or urination. - Related Data Home Medications Medication Instructions Recorded Confirmed Aspirin EC [Ecotrin Low Dose] 81 mg PO DAILY 07/23/16 02/04/19 Calcium Polycarbophil [Fibercon] 1,250 mg PO HS 07/23/16 02/04/19 Ezetimibe [Zetia] 10 mg PO DAILY 07/23/16 02/04/19 Fish Oil/Dha/Epa [Fish Oil 1,200 1 cap PO DAILY 07/23/16 02/04/19 mg Fish Oil] Levothyroxine Sodium [Synthroid] 125 mcg PO DAILY 07/23/16 02/04/19 Metoprolol Tartrate [Lopressor] 25 mg PO BID 07/23/16 02/04/19 Mineral Oil 30 ml PO HS 07/23/16 02/04/19 Naproxen Sodium [Aleve] 440 mg PO DAILY 07/23/16 02/04/19 Nystatin/Triamcin Cream [Mycolog 1 applic TOPICAL HS PRN 07/23/16 02/04/19 100,000-0.1 Unit/gm-% Cream] Ramipril [Altace] 5 mg PO DAILY 07/23/16 02/04/19 Rosuvastatin Calcium [Crestor] 20 mg PO DAILY 07/23/16 02/04/19 amLODIPine [Norvasc] 10 mg PO DAILY 07/23/16 02/04/19 metFORMIN HCL [Glucophage] 500 mg PO DAILY 07/23/16 02/04/19 Fenofibrate Nanocrystallized 145 mg PO DAILY 02/04/19 02/04/19 [Fenofibrate] Previous Rx's Medication Instructions Recorded Hydrocodone/Acetaminophen [[place] 1 tab PO Q6HR PRN #12 tab 02/04/19 5-325] Lidocaine 5% Patch [Lidoderm] 1 patch TOPICAL DAILY #30 patch 02/04/19 Allergies Allergy/AdvReac Type Severity Reaction Status Date / Time codeine Allergy Unknown Verified 02/04/19 18:54 Penicillins Allergy Unknown Verified 02/04/19 18:54 Review of Systems ROS Statement: Those systems with pertinent positive or pertinent negative responses have been documented in the HPI. ROS Other: All systems not noted in ROS Statement are negative. Past Medical History Past Medical History: Hyperlipidemia, Hypertension, Prostate Disorder, Thyroid Disorder Additional Past Medical History / Comment(s): carpel tunnel History of Any Multi-Drug Resistant Organisms: None Reported Past Surgical History: Cholecystectomy, Coronary Bypass/CABG Additional Past Surgical History / Comment(s): hemorrhoid, CABG X4 Past Anesthesia/Blood Transfusion Reactions: No Reported Reaction Past Psychological History: No Psychological Hx Reported Smoking Status: Never smoker Past Alcohol Use History: None Reported Past Drug Use History: None Reported - Past Family History Father Family Medical History: No Reported History Additional Family Medical History / Comment(s): Smoker Mother Family Medical History: No Reported History General Exam Limitations: no limitations General appearance: alert, in no apparent distress, other (This is a well- developed, well-nourished elderly male patient in no acute distress. Vital signs upon presentation are temperature 98.2F, pulse 67, respirations 18, blood pressure 147/84, pulse ox 97% on room air.) Eye exam: Present: normal appearance, PERRL, EOMI. Absent: scleral icterus, conjunctival injection, periorbital swelling ENT exam: Present: normal exam, normal oropharynx, mucous membranes moist Respiratory exam: Present: normal lung sounds bilaterally, chest wall tenderness (Left lateral ribs). Absent: respiratory distress, wheezes, rales, rhonchi, stridor Cardiovascular Exam: Present: regular rate, normal rhythm, normal heart sounds. Absent: systolic murmur, diastolic murmur, rubs, gallop, clicks GI/Abdominal exam: Present: soft, normal bowel sounds. Absent: distended, tenderness, guarding, rebound, rigid Neurological exam: Present: alert, oriented X3, CN II-XII intact Psychiatric exam: Present: normal affect, normal mood Skin exam: Present: warm, dry, intact, normal color. Absent: rash Course Vital Signs 02/04/19 17:39 Temperature 98.2 F Pulse Rate 67 Respiratory 18 Rate Blood Pressure 147/84 O2 Sat by Pulse 97 Oximetry EKG Findings - EKG Comments: EKG Findings:: EKG obtained at 1845 shows normal sinus rhythm with a ventricular rate of 60, MI interval 172, QRS duration 100, QT 434, QTC 434. No evidence of ST elevation or depression. Medical Decision Making - Medical Decision Making 78 year-old male patient presented to the emergency department today for evaluation of left rib pain after moving rocks 3 days ago. Physical examination did reveal tenderness over the left lateral ribs. Patient reported increased pain with movement, deep breathing, and coughing. X-ray of the chest and left ribs were obtained and showed no acute fractures. Patient is also reporting right hand pain, this x-ray was negative as well. EKG showed normal sinus rhythm. I did discuss findings and results with the patient. Symptoms are consistent with rib injury possibly costochondritis. He'll be discharged with medications for pain, incentive spirometry, and instructions follow up with his primary care physician for recheck in 1-2 days. Return parameters were di scussed in detail. He verbalizes understanding and agrees with this plan. - Lab Data Lab Results 02/04/19 Range/Units 19:00 Urine Color Yellow Urine Appearance Clear (Clear) Urine pH 6.0 (5.0-8.0) Ur Specific [place] 1.011 (1.001-1.035) Urine Protein Negative (Negative) Urine Glucose (UA) Negative (Negative) Urine Ketones Negative (Negative) Urine Blood Negative (Negative) Urine Nitrite Negative (Negative) Urine Bilirubin Negative (Negative) Urine Urobilinogen <2.0 (<2.0) mg/dL Ur Leukocyte Esterase Negative (Negative) - Radiology Data Radiology results: report reviewed, image reviewed 3 views of the right hand are obtained. Report was reviewed in its entirety. Impression by Dr. Powers shows osteoarthritic changes. No fracture. No sign of inflammatory arthritis. One view of the chest and 4 views of the left ribs are obtained. Report was reviewed in its entirety. Impression by Dr. Powers shows no active cardiopulmonary disease. No for fracture seen. No change compared to old exam. Disposition Clinical Impression: Rib injury, Hand sprain Disposition: HOME SELF-CARE Condition: Good Instructions (If sedation given, give patient instructions): Rib Fracture (ED), Hand Sprain (ED) Additional Instructions: Splint with a pillow during coughing or sneezing episodes. Perform incentive spirometry and deep breathing episodes 10 times per hour while awake. Take medications as directed. Follow up with your primary care physician for recheck in 1-2 days. Return to the emergency department for recheck for any new, worsening, or concerning symptoms. Prescriptions: Lidocaine 5% Patch [Lidoderm] 1 patch TOPICAL DAILY #30 patch Hydrocodone/Acetaminophen [[place] 5-325] 1 tab PO Q6HR PRN #12 tab PRN Reason: Pain Is patient prescribed a controlled substance at d/c from ED?: Yes When asked, does pt state using other controlled substances?: Yes If prescribed controlled substance>3 days was MAPS reviewed?: Prescribed <3 Days If opioid is for acute pain is fill amount 7 days or less?: No If Rx opioid, was Start Talking consent form obtained?: No Referrals: Shaun Desai MD [Primary Care Provider] - 1-2 days Time of Disposition: 19:41
[2019-02-04 19:18] LABS: Appearance,Urine Clear (Clear); Bilirubin,Urine Negative (Negative); Blood,Urine Negative (Negative); Color,Urine Yellow; Glucose,Urine (UA) Negative (Negative); Ketones,Urine Negative (Negative); Leukocyte Esterase,Urine Negative (Negative); Nitrite,Urine Negative (Negative); Protein,Urine Negative (Negative); Specific Gravity,Urine 1.011 (1.001-1.035); Urobilinogen,Urine <2.0 mg/dL (<2.0)
--- NOTE | 2019-02-04 19:27 | XR ---
EXAMINATION TYPE: XR hand complete RT DATE OF EXAM: 02/04/2019 COMPARISON: NONE HISTORY: Pain TECHNIQUE: 3 views FINDINGS: There is some spurring of the IP joints. Metacarpals appear intact. I see no fracture nor d islocation. There is narrowing and spurring at the first carpometacarpal joint. There are no erosions . There is no subluxation. IMPRESSION: Osteoarthritic changes. No fracture. No sign of inflammatory arthritis.
--- NOTE | 2019-02-04 19:29 | XR ---
EXAMINATION TYPE: XR ribs LT w pa chest xray DATE OF EXAM: 02/04/2019 COMPARISON: Chest x-ray 06/24/2017 HISTORY: Left rib pain. Injury. TECHNIQUE: 5 views FINDINGS: Heart is normal. Thoracic aorta is atheromatous. Lungs are clear of consolidation. There is no heart failure. There is no pleural effusion or pneumothorax. I see no rib fracture. IMPRESSION: No active cardiopulmonary disease. No rib fracture seen. No change compared to old exam.
== END 2019-02-04 21:03 | disposition home or self-care (01) ==
LOC: EC 17:21
DX: S63.91XA Sprain of unspecified part of right wrist and hand, initial encounter (principal); S29.9XXA Unspecified injury of thorax, initial encounter; E78.5 Hyperlipidemia, unspecified; I10 Essential (primary) hypertension; E07.9 Disorder of thyroid, unspecified; Z88.0 Allergy status to penicillin; Z88.5 Allergy status to narcotic agent; Z79.1 Long term (current) use of non-steroidal anti-inflammatories (NSAID); Z79.82 Long term (current) use of aspirin; Z79.84 Long term (current) use of oral hypoglycemic drugs; Z79.890 Hormone replacement therapy; Z79.899 Other long term (current) drug therapy; Z95.1 Presence of aortocoronary bypass graft; X50.0XXA Overexertion from strenuous movement or load, initial encounter; Y92.828 Other wilderness area as the place of occurrence of the external cause
CPT/HCPCS: 93005; 81003; 71101; 73130; 99284; 96372; J1885

== ENCOUNTER 2019-02-11 15:06 | Observation (INO) | payer MEDICARE, BC ==
--- NOTE | 2019-02-11 15:55 | ED ---
Chest Pain HPI - General Chief Complaint: Chest Pain Stated Complaint: Chest pain Time Seen by Provider: 02/11/19 15:50 Source: patient, family, RN notes reviewed, old records reviewed Mode of arrival: wheelchair Limitations: no limitations - History of Present Illness Initial Comments: This is a 78-year-old male the ER for evaluation presents today for evaluation regards to chest pain. Patient has prior history of cardiac bypass. Chest pain is been episodic for weeks, 2 weeks ago he had similar event left-sided chest pain rating to 4 of chest. No trauma. Patient also had some flank pain in between but on currently. No shortness of breath or diaphoresis mild nausea no vomiting. Pain is current left-sided left breast. Sharp and stabbing. No recent history of cough congestion or fever. No current shortness of breath or diaphoresis MD Complaint: chest pain -: hour(s) Onset: during rest Pain Location: substernal, left chest Severity: mild Severity scale (1-10): 3 Quality: tightness, sharp Consistency: intermittent Improves With: nothing Worsens With: nothing Treatments Prior to Arrival: none - Related Data Home Medications Medication Instructions Recorded Confirmed Aspirin EC [Ecotrin Low Dose] 81 mg PO DAILY 07/23/16 02/04/19 Calcium Polycarbophil [Fibercon] 1,250 mg PO HS 07/23/16 02/04/19 Ezetimibe [Zetia] 10 mg PO DAILY 07/23/16 02/04/19 Fish Oil/Dha/Epa [Fish Oil 1,200 1 cap PO DAILY 07/23/16 02/04/19 mg Fish Oil] Levothyroxine Sodium [Synthroid] 125 mcg PO DAILY 07/23/16 02/04/19 Metoprolol Tartrate [Lopressor] 25 mg PO BID 07/23/16 02/04/19 Mineral Oil 30 ml PO HS 07/23/16 02/04/19 Naproxen Sodium [Aleve] 440 mg PO DAILY 07/23/16 02/04/19 Nystatin/Triamcin Cream [Mycolog 1 applic TOPICAL HS PRN 07/23/16 02/04/19 100,000-0.1 Unit/gm-% Cream] Ramipril [Altace] 5 mg PO DAILY 07/23/16 02/04/19 Rosuvastatin Calcium [Crestor] 20 mg PO DAILY 07/23/16 02/04/19 amLODIPine [Norvasc] 10 mg PO DAILY 07/23/16 02/04/19 metFORMIN HCL [Glucophage] 500 mg PO DAILY 07/23/16 02/04/19 Fenofibrate Nanocrystallized 145 mg PO DAILY 02/04/19 02/04/19 [Fenofibrate] Previous Rx's Medication Instructions Recorded Hydrocodone/Acetaminophen [[place] 1 tab PO Q6HR PRN #12 tab 02/04/19 5-325] Lidocaine 5% Patch [Lidoderm] 1 patch TOPICAL DAILY #30 patch 02/04/19 Allergies Allergy/AdvReac Type Severity Reaction Status Date / Time codeine Allergy Unknown Verified 02/11/19 15:14 Penicillins Allergy Unknown Verified 02/11/19 15:14 Review of Systems ROS Statement: Those systems with pertinent positive or pertinent negative responses have been documented in the HPI. ROS Other: All systems not noted in ROS Statement are negative. EKG Findings - EKG Comments: EKG Findings:: EKG shows sinus rhythm rate of 60, AK 180, QRS 100, QTc 461 Past Medical History Past Medical History: Hyperlipidemia, Hypertension, Prostate Disorder, Thyroid Disorder Additional Past Medical History / Comment(s): carpel tunnel History of Any Multi-Drug Resistant Organisms: None Reported Past Surgical History: Cholecystectomy, Coronary Bypass/CABG Additional Past Surgical History / Comment(s): hemorrhoid, CABG X4 Past Anesthesia/Blood Transfusion Reactions: No Reported Reaction Past Psychological History: No Psychological Hx Reported Smoking Status: Never smoker Past Alcohol Use History: None Reported Past Drug Use History: None Reported - Past Family History Father Family Medical History: No Reported History Additional Family Medical History / Comment(s): Smoker Mother Family Medical History: No Reported History General Exam Limitations: no limitations General appearance: alert, in no apparent distress Head exam: Present: atraumatic, normocephalic, normal inspection Eye exam: Present: normal appearance, PERRL, EOMI. Absent: scleral icterus, conjunctival injection, periorbital swelling ENT exam: Present: normal exam, mucous membranes moist Neck exam: Present: normal inspection. Absent: tenderness, meningismus, lymphadenopathy Respiratory exam: Present: normal lung sounds bilaterally. Absent: respiratory distress, wheezes, rales, rhonchi, stridor Cardiovascular Exam: Present: regular rate, normal rhythm, normal heart sounds. Absent: systolic murmur, diastolic murmur, rubs, gallop, clicks GI/Abdominal exam: Present: soft, normal bowel sounds. Absent: distended, tenderness, guarding, rebound, rigid Extremities exam: Present: normal inspection, full ROM, normal capillary refill. Absent: tenderness, pedal edema, joint swelling, calf tenderness Back exam: Present: normal inspection Neurological exam: Present: alert, oriented X3, CN II-XII intact Psychiatric exam: Present: normal affect, normal mood Skin exam: Present: warm, dry, intact, normal color. Absent: rash Course Vital Signs 02/11/19 15:11 Temperature 98.1 F Pulse Rate 70 Respiratory 18 Rate Blood Pressure 161/90 O2 Sat by Pulse 96 Oximetry - Reevaluation(s) Reevaluation #1: 02/11/19 15:56 Medical records reviewed 02/11/19 15:57 Records from prior ER visit 2 weeks ago reviewed Reevaluation #2: 02/11/19 15:56 Patient having episodic chest pain currently here in the ER Chest Pain MDM - MDM 78 male the ER for evaluation presents today for evaluation regarding chest pain. Left-sided chest pain atypical does have history of prior CABG. Patient will be admitted for cardiac evaluation and treatment. Critical Care Time Critical Care Time: Yes Total Critical Care Time: 31 Disposition Clinical Impression: Chest pain, Unstable angina pectoris Disposition: ADMITTED IP TO THIS HOSP Condition: Undetermined Is patient prescribed a controlled substance at d/c from ED?: No Referrals: Shaun Desai MD [Primary Care Provider] - 1-2 days
[2019-02-11 16:22] LABS: Basophils # (A) 0.1 k/uL (0-0.2); Basophils % (A) 1 %; Eosinophils # (A) 0.2 k/uL (0-0.7); Eosinophils % (A) 2 %; HCT 44.2 % (39.0-53.0); Lymphocytes # (A) 1.8 k/uL (1.0-4.8); Lymphocytes % (A) 22 %; MCH 32.4 pg (25.0-35.0); MCV 95.5 fL (80.0-100.0); Mean Platelet Volume 6.7; Monocytes # (A) 0.6 k/uL (0-1.0); Monocytes % (A) 8 %; Neutrophils # (A) 5.4 k/uL (1.3-7.7); Neutrophils % (A) 65 %; Platelet Count 309 k/uL (150-450); RBC 4.62 m/uL (4.30-5.90); RDW 13.2 % (11.5-15.5); WBC 8.2 k/uL (3.8-10.6)
[2019-02-11] MEDS ORDERED: NITROGLYCERIN SL TABS 0.4 MG TAB SUBLINGUAL PRN (16:26)
[2019-02-11] MEDS ORDERED: ASPIRIN 81 MG PO STA (16:26)
[2019-02-11] MEDS ORDERED: HEPARIN SODIUM,PORCINE 5,000 UNIT/ML 1 ML VIAL IV PRN (16:26)
[2019-02-11] MEDS ORDERED: HEPARIN SODIUM,PORCINE 5,000 UNIT/ML 1 ML VIAL IV ONE (16:26)
[2019-02-11 16:30] LABS: ALT 27 U/L (21-72); AST 33 U/L (17-59); African American GFR (CKD) >90 (>60 ml/min/1.73 sqM); Albumin 4.3 g/dL (3.5-5.0); Alkaline Phosphatase 45 U/L (38-126); Anion Gap 10 mmol/L; Blood Urea Nitrogen 16 mg/dL (9-20); Calcium 10.1 mg/dL (8.4-10.2); Carbon Dioxide 24 mmol/L (22-30); Chloride 106 mmol/L (98-107); Creatine Kinase 162 U/L (55-170); Glucose 124 mg/dL (74-99); Magnesium 1.8 mg/dL (1.6-2.3); Potassium 3.9 mmol/L (3.5-5.1); Sodium 140 mmol/L (137-145); Total Bilirubin 0.5 mg/dL (0.2-1.3); Total Protein 7.6 g/dL (6.3-8.2)
[2019-02-11 16:37] LABS: D-Dimer 0.57 mg/L FEU (<0.60); Partial Thromboplastin Time 24.4 sec (22.0-30.0); Prothrombin Time 10.3 sec (9.0-12.0)
--- NOTE | 2019-02-11 16:45 | XR ---
EXAMINATION TYPE: XR chest 2V DATE OF EXAM: 02/11/2019 COMPARISON: 02/04/2019 HISTORY: 78-year-old male with chest pain TECHNIQUE: PA and lateral views FINDINGS: Median sternotomy wires are present with post-CABG clips. Heart normal size. Elongation/ectasia of th e thoracic aorta. Strandy atelectasis mid and lower lungs. No consolidation or pleural effusion. IMPRESSION: Chronic changes without acute cardiopulmonary process.
[2019-02-11] MEDS: SODIUM CHLORIDE 0.9% 1,000 ML IV SCH (18:56)
[2019-02-11] MEDS: HEPARIN SOD,PORK IN 0.45% NACL 25,000 UNIT in 0.45% NACL 1 250ML.BAG IV SCH (18:59)
[2019-02-11 19:03] VITALS: RESP 18
[2019-02-11 20:34] LABS: Glucose,Whole Blood 151 mg/dL (75-99)
[2019-02-11] MEDS ORDERED: METOPROLOL TARTRATE 25 MG TAB PO SCH (21:00)
[2019-02-11] MEDS ORDERED: NYSTAT-TRIAMCIN 100,000-0.1 UNIT/GM-% CREAM 30 GM TUBE TOPICAL PRN (21:10)
[2019-02-11] MEDS ORDERED: TRIAMCINOLONE 0.1% CREAM 80 GM TUBE TOPICAL PRN ×2 (21:31→21:33)
[2019-02-11] MEDS ORDERED: NYSTATIN 100,000UNIT/GM CREAM 30 GM TUBE TOPICAL PRN ×2 (21:32→21:33)
[2019-02-11] MEDS: METOPROLOL TARTRATE 25 MG TAB PO SCH (22:17)
[2019-02-12] MEDS: SODIUM CHLORIDE 0.9% 1,000 ML IV SCH (01:00)
[2019-02-12 03:47] LABS: Mean Platelet Volume 7.1; Platelet Count 291 k/uL (150-450)
[2019-02-12 04:31] LABS: Cholesterol 144 mg/dL (<200); HDL Cholesterol 29 mg/dL (40-60); LDL Cholesterol,Calculated 91 mg/dL (0-99); Triglycerides 121 mg/dL (<150)
[2019-02-12] MEDS: HEPARIN SOD,PORK IN 0.45% NACL 25,000 UNIT in 0.45% NACL 1 250ML.BAG IV SCH (06:21)
[2019-02-12] MEDS ORDERED: LEVOTHYROXINE 125 MCG TAB PO SCH (06:30)
[2019-02-12 06:43] LABS: Glucose,Whole Blood 136 mg/dL (75-99)
--- NOTE | 2019-02-12 07:50 | P.HPIM ---
History of Present Illness H&P Date: 02/12/19 Chief Complaint: Rib pain This is a history of physical 78-year-old white male who has an underlying history of hypertension who states left sided chest pain. The pain is located above his left upper quadrant. It is sometimes described as rib and hypo- chondral. The patient states the pain was quite severe. He has had no pain since being admitted. No significant diaphoresis no nausea no radiation pain. Food is not provocative. But because of his element of pain and age, he is appropriately admitted for rule out myocardial infarction. Review of Systems Constitutional: Denies chills, Denies fever Eyes: denies blurred vision, denies pain Ears, nose, mouth and throat: Denies headache, Denies sore throat Cardiovascular: Reports chest pain, Denies leg edema, Denies paroxysmal nocturnal dyspnea, Denies shortness of breath Respiratory: Denies cough Gastrointestinal: Denies abdominal pain, Denies diarrhea, Denies nausea, Denies vomiting Musculoskeletal: Denies myalgias Integumentary: Denies pruritus, Denies rash Neurological: Denies numbness, Denies weakness Past Medical History Past Medical History: Coronary Artery Disease (CAD), Hyperlipidemia, Hypertension, Prostate Disorder, Thyroid Disorder Additional Past Medical History / Comment(s): carpel tunnel History of Any Multi-Drug Resistant Organisms: None Reported Past Surgical History: Cholecystectomy, Coronary Bypass/CABG Additional Past Surgical History / Comment(s): hemorrhoid, CABG X4 Past Anesthesia/Blood Transfusion Reactions: No Reported Reaction Past Psychological History: No Psychological Hx Reported Smoking Status: Never smoker Past Alcohol Use History: None Reported Past Drug Use History: None Reported - Past Family History Father Family Medical History: No Reported History Additional Family Medical History / Comment(s): Smoker Mother Family Medical History: No Reported History Medications and Allergies Home Medications Medication Instructions Recorded Confirmed Type Aspirin EC [Ecotrin Low Dose] 81 mg PO DAILY 07/23/16 02/11/19 History Ezetimibe [Zetia] 10 mg PO DAILY 07/23/16 02/11/19 History Fish Oil/Dha/Epa [Fish Oil 1,200 1 cap PO DAILY 07/23/16 02/11/19 History mg Fish Oil] Levothyroxine Sodium [Synthroid] 125 mcg PO DAILY 07/23/16 02/11/19 History Metoprolol Tartrate [Lopressor] 25 mg PO BID 07/23/16 02/11/19 History Naproxen Sodium [Aleve] 440 mg PO DAILY 07/23/16 02/11/19 History Nystatin/Triamcin Cream [Mycolog 1 applic TOPICAL HS PRN 07/23/16 02/11/19 History 100,000-0.1 Unit/gm-% Cream] Ramipril [Altace] 5 mg PO DAILY 07/23/16 02/11/19 History Rosuvastatin Calcium [Crestor] 20 mg PO DAILY 07/23/16 02/11/19 History amLODIPine [Norvasc] 10 mg PO DAILY 07/23/16 02/11/19 History metFORMIN HCL [Glucophage] 500 mg PO DAILY 07/23/16 02/11/19 History Fenofibrate Nanocrystallized 145 mg PO DAILY 02/04/19 02/11/19 History [Fenofibrate] Allergies Allergy/AdvReac Type Severity Reaction Status Date / Time codeine Allergy Unknown Verified 02/11/19 16:48 Penicillins Allergy Unknown Verified 02/11/19 16:48 Physical Exam Vitals: Vital Signs Temp Pulse Pulse Resp BP BP Pulse Ox 02/12/19 04:00 98.0 F 71 18 139/81 98 02/11/19 23:53 97.8 F 60 18 137/82 94 L 02/11/19 19:15 97.8 F 58 L 18 149/85 95 02/11/19 19:03 84 18 134/80 98 02/11/19 18:39 60 16 134/80 93 L 02/11/19 17:40 62 16 128/76 99 02/11/19 15:11 98.1 F 70 18 161/90 96 Intake and Output 02/11/19 02/12/19 02/12/19 22:59 06:59 14:59 Intake Total 625.692 Balance 625.692 Intake: Intake, IV Titration 625.692 Amount Heparin Sod,Pork in 0.45% 125.692 NaCl 25,000 unit In 0.45 % NaCl 1 250ml.bag @ 9 UNITS/KG/HR 10.002 mls/hr IV .Q24H [facility] Rx#: [id number] Sodium Chloride 0.9% 1, 500 000 ml @ 100 mls/hr IV . Q10H [facility] Rx#:[id number] Other: # Voids 2 Weight 111.13 kg - Constitutional General appearance: no acute distress, obese - EENT Eyes: EOMI - Neck Neck: no lymphadenopathy - Respiratory Respiratory: bilateral: CTA - Cardiovascular Rhythm: regular Heart sounds: normal: S1, S2 Abnormal Heart Sounds: no S3 Gallop - Gastrointestinal General gastrointestinal: soft, no tenderness - Integumentary Integumentary: no cellulitis, normal - Neurologic Neurologic: CNII-XII intact - Musculoskeletal Musculoskeletal: gait normal - Psychiatric Psychiatric: A&O x's 3, appropriate affect Results CBC & Chem 7: 02/12/19 03:29 02/11/19 16:00 Labs: Abnormal Lab Results - Last 24 Hours (Table) 02/11/19 02/11/19 02/12/19 Range/Units 16:00 20:29 02:07 APTT 35.3 H (22.0-30.0) sec Glucose 124 H (74-99) mg/dL POC Glucose (mg/dL) 151 H (75-99) mg/dL HDL Cholesterol (40-60) mg/dL 02/12/19 02/12/19 Range/Units 03:29 06:41 APTT (22.0-30.0) sec Glucose (74-99) mg/dL POC Glucose (mg/dL) 136 H (75-99) mg/dL HDL Cholesterol 29 L (40-60) mg/dL Thrombosis Risk Factor Assmnt - Choose All That Apply Each Factor Represents 1 point: Obesity (BMI >25) Each Risk Factor Represents 3 Points: Age 75 years or older Thrombosis Risk Factor Assessment Total Risk Factor Score: 4 Thrombosis Risk Factor Assessment Level: Moderate Risk Assessment and Plan (1) Chest pain Current Visit: Yes Status: Acute Code(s): R07.9 - CHEST PAIN, UNSPECIFIED SNOMED Code(s): 06296505 (2) Hypertension Current Visit: No Status: Acute Code(s): I10 - ESSENTIAL (PRIMARY) HYPERTENSION SNOMED Code(s): 03560159 Plan: Rule out myocardial infarction. Otherwise, reinstitute home medications. Consult cardiology for probable stress testing. See orders otherwise. Anticipate discharge in next 24-40 hours assuming testing is nominal. Time with Patient: Greater than 30
[2019-02-12 07:51] VITALS: PULSE 67
[2019-02-12] MEDS ORDERED: amLODIPine 10 MG TAB PO SCH (09:00)
[2019-02-12] MEDS ORDERED: ATORVASTATIN 40 MG TAB PO SCH (09:00)
[2019-02-12] MEDS ORDERED: ASPIRIN 81 MG PO SCH ×2 (09:00)
[2019-02-12] MEDS ORDERED: LISINOPRIL 20 MG TAB PO SCH (09:00)
[2019-02-12] MEDS ORDERED: EZETIMIBE 10 MG TAB PO SCH (09:00)
[2019-02-12] MEDS ORDERED: ASPIRIN 325 MG TAB PO SCH (09:00)
[2019-02-12] MEDS ORDERED: FENOFIBRATE 160 MG TAB PO SCH (09:00)
[2019-02-12] MEDS ORDERED: FISH OIL 1200 MG PO SCH (09:00)
[2019-02-12] MEDS ORDERED: DOBUTamine DRIP for NUC MED 500 MG in DEXTROSE/WATER 1 250ML.BAG IV ONE (10:03)
--- NOTE | 2019-02-12 11:36 | ECHOF ---
Referral Reason: MEASUREMENTS -------- HEIGHT: 172.7 cm WEIGHT: 111.1 kg BP: 140/60 RVIDd: 2.8 cm (< 3.3) IVSd: 1.2 cm (0.6 - 1.1) LVIDd: 5.2 cm (3.9 - 5.3) LVPWd: 1.1 cm (0.6 - 1.1) IVSs: 1.5 cm LVIDs: 3.4 cm LVPWs: 1.6 cm LA Diam: 4.2 cm (2.7 - 3.8) LAESV Index (A-L): 33.99 ml/m Ao Diam: 3.6 cm (2.0 - 3.7) AV Cusp: 2.3 cm (1.5 - 2.6) LA Diam: 4.8 cm (2.7 - 3.8) MV EXCURSION: 22.213 mm (> 18.000) MV EF SLOPE: 53 mm/s (70 - 150) EPSS: 0.2 cm MV E Romario: 0.43 m/s MV DecT: 246 ms MV A Romario: 0.73 m/s MV E/A Ratio: 0.59 AR PHT: 780 ms RAP: 5.00 mmHg RVSP: 32.74 mmHg FINDINGS -------- Sinus rhythm. This was a technically adequate study. The left ventricular size is normal. There is mild concentric left ventricular hypertrophy. Overa ll left ventricular systolic function is mildly impaired with, an EF between 45 - 50 %. Basal Septa l Hypokinesis The right ventricle is normal in size. The left atrium is mildly dilated. LA is midly dilated 29-33ml/m2. The right atrial size is normal. Trace to mild aortic regurgitation. Mild mitral annular calcification present. Mild mitral regurgitation is present. Mild tricuspid regurgitation present. There is no evidence of pulmonary hypertension. The right v entricular systolic pressure, as measured by Doppler, is 32.74mmHg. There is no pulmonic regurgitation present. The aortic root size is normal. There is no pericardial effusion. CONCLUSIONS -------- 1. Sinus rhythm. 2. This was a technically adequate study. 3. The left ventricular size is normal. 4. There is mild concentric left ventricular hypertrophy. 5. Overall left ventricular systolic function is mildly impaired with, an EF between 45 - 50 %. 6. Basal Septal Hypokinesis 7. The right ventricle is normal in size. 8. The left atrium is mildly dilated. 9. LA is midly dilated 29-33ml/m2. 10. The right atrial size is normal. 11. Trace to mild aortic regurgitation. 12. Mild mitral annular calcification present. 13. Mild mitral regurgitation is present. 14. Mild tricuspid regurgitation present. 15. There is no evidence of pulmonary hypertension. 16. The right ventricular systolic pressure, as measured by Doppler, is 32.74mmHg. 17. There is no pulmonic regurgitation present. 18. The aortic root size is normal. 19. There is no pericardial effusion. RISK PREVENTION ENGINEER: Tawana Ventura RDCS
[2019-02-12 11:54] LABS: Glucose,Whole Blood 118 mg/dL (75-99)
[2019-02-12 12:13] VITALS: BP 133/79; TEMP 97.7
--- NOTE | 2019-02-12 12:23 | P.CRDCN ---
History of Present Illness History of present illness: This is a pleasant 78-year-old male past medical history significant for coronary artery diseases s/p 4-V bypass grafting. Recent catheterization 06/2017 revealed patent MCGILL-LAD, SVG-OM distally, SVG-OM1 and SVG-RCA, hypertension, dyslipidemia and diabetes mellitus. He follows in the office with Dr. Almaraz. We've asked him in consultation secondary to chest discomfort. He states presently one week ago while moving some stones are on his on he pulled a muscle and developed some pain in the left thoracic region. This pain was worse with movement. He came to the hospital at that time for evaluation and was given some pain medication as well as a pain patch. The pain has been intermittent throughout the course of the previous week however last evening he developed pain in the left precordial region. This pain was described as a heavy pressure sensation. There was no radiation to the back, arm, neck or jaw. He denies any associated symptoms however his states that he seemed like he was short of breath at the time. The chest discomfort was brief lasting only for about 5 minutes and subsided on its own. He is seen and examined resting comfortably in bed in no acute distress. He denies any further symptoms of chest discomfort. EKG reveals sinus mechanism with no acute ST or T wave abnormalities noted. Chest x-ray is negative for an acute cardiopulmonary process. Laboratory data reviewed, CBC unremarkable, sodium 140, potassium 3.9, creatinine 0.93, magnesium 1.8, d-dimer 0.57, proBNP 99, cardiac enzymes negative 3, LDL 91. Most recent echocardiogram obtained December 2017 reveals preserved LV systolic function with ejection fraction 55-60%. Current cardiac medications include aspirin 81 mg daily, amlodipine 10 mg daily, rosuvastatin 20 mg daily, ramipril 5 mg daily, Lopressor 25 mg twice a day, fenofibrate 145 g daily, that he attend milligrams daily. At the time of my exam: CONSTITUTIONAL: Denies fever. Denies chills. EYES: Denies blurred vision. Denies vision changes. Denies eye pain. EARS, NOSE, MOUTH & THROAT: Denies headache. Denies sore throat. Denies ear pain. CARDIOVASCULAR: Denies chest pain. Denies shortness of breath. Denies orthopnea. Denies PND. Denies palpitations. RESPIRATORY: Denies cough. GASTROINTESTINAL: Denies abdominal pain. Denies diarrhea. Denies constipation. Denies nausea. Denies vomiting. MUSCULOSKELETAL: Denies myalgias. INTEGUMENTARY: Denies pruitis. Denies rash. NEUROLOGIC: Denies numbness. Denies tingling. Denies weakness. PSYCHIATRIC: Denies anxiety. Denies depression. ENDOCRINE: Denies fatigue. Denies weight change. Denies polydipsia. Denies polyurina. GENITOURINARY: Denies burning, hematuria or urgency with micturation. HEMATOLOGIC: Denies history of anemia. Denies bleeding. Blood pressure 133/79 heart rate 67 afebrile maintaining oxygen saturation on room air GENERAL: This is a 78-year-old male in no apparent distress at the time of my examination. HEENT: Head is atraumatic, normocephalic. Pupils are equal, round. Sclerae anicteric. Conjunctivae are clear. Mucous membranes of the mouth are moist. Neck is supple. There is no jugular venous distention. No carotid bruit is heard. LUNGS: Clear to auscultation no wheezes, rales or rhonchi. No chest wall tenderness is noted on palpation or with deep breathing. HEART: Regular rate and rhythm without murmurs, rubs or gallops. S1 and S2 heard. ABDOMEN: Soft, nontender. Bowel sounds are heard. No organomegaly noted. EXTREMITIES: No evidence of peripheral edema and no calf tenderness noted. VASCULAR: Radial and dorsalis pedis pulses palpated, no evidence of clubbing. NEUROLOGIC: Patient is awake, alert and oriented x3. ASSESSMENT Chest pain, atypical. An acute coronary event has been ruled out. Recent musculoskeletal strain History of coronary artery disease status post bypass grafting Hypertension Dyslipidemia Diabetes mellitus PLAN An acute coronary event has been ruled out. Symptoms possibly related to recent musculoskeletal injury however given previous medical history remarkable recommend proceeding with dobutamine stress echocardiogram to assess for stress- induced ischemia. Increase Crestor to 40 mg daily for target LDL less than 70. Repeat echocardiogram to assess cardiac structure and function. If stress test is normal he is stable from a cardiac perspective, follow-up with Dr. Almaraz in 2-3 weeks. Thank you kindly for this consultation. Nurse Practitioner note has been reviewed, I agree with a documented findings and plan of care. Patient was seen and examined. Past Medical History Past Medical History: Coronary Artery Disease (CAD), Hyperlipidemia, Hypertension, Prostate Disorder, Thyroid Disorder Additional Past Medical History / Comment(s): carpel tunnel History of Any Multi-Drug Resistant Organisms: None Reported Past Surgical History: Cholecystectomy, Coronary Bypass/CABG Additional Past Surgical History / Comment(s): hemorrhoid, CABG X4 Past Anesthesia/Blood Transfusion Reactions: No Reported Reaction Past Psychological History: No Psychological Hx Reported Smoking Status: Never smoker Past Alcohol Use History: None Reported Past Drug Use History: None Reported - Past Family History Father Family Medical History: No Reported History Additional Family Medical History / Comment(s): Smoker Mother Family Medical History: No Reported History Medications and Allergies Home Medications Medication Instructions Recorded Confirmed Type Aspirin EC [Ecotrin Low Dose] 81 mg PO DAILY 07/23/16 02/11/19 History Ezetimibe [Zetia] 10 mg PO DAILY 07/23/16 02/11/19 History Fish Oil/Dha/Epa [Fish Oil 1,200 1 cap PO DAILY 07/23/16 02/11/19 History mg Fish Oil] Levothyroxine Sodium [Synthroid] 125 mcg PO DAILY 07/23/16 02/11/19 History Metoprolol Tartrate [Lopressor] 25 mg PO BID 07/23/16 02/11/19 History Naproxen Sodium [Aleve] 440 mg PO DAILY 07/23/16 02/11/19 History Nystatin/Triamcin Cream [Mycolog 1 applic TOPICAL HS PRN 07/23/16 02/11/19 History 100,000-0.1 Unit/gm-% Cream] Ramipril [Altace] 5 mg PO DAILY 07/23/16 02/11/19 History Rosuvastatin Calcium [Crestor] 20 mg PO DAILY 07/23/16 02/11/19 History amLODIPine [Norvasc] 10 mg PO DAILY 07/23/16 02/11/19 History metFORMIN HCL [Glucophage] 500 mg PO DAILY 07/23/16 02/11/19 History Fenofibrate Nanocrystallized 145 mg PO DAILY 02/04/19 02/11/19 History [Fenofibrate] Allergies Allergy/AdvReac Type Severity Reaction Status Date / Time codeine Allergy Unknown Verified 02/11/19 16:48 Penicillins Allergy Unknown Verified 02/11/19 16:48 Physical Exam Vitals: Vital Signs Temp Pulse Pulse Resp BP BP Pulse Ox 08/29/19 08:17 18 02/12/19 07:15 97.5 F L 67 18 152/87 96 02/12/19 04:00 98.0 F 71 18 139/81 98 02/11/19 23:53 97.8 F 60 18 137/82 94 L 02/11/19 19:15 97.8 F 58 L 18 149/85 95 02/11/19 19:03 84 18 134/80 98 02/11/19 18:39 60 16 134/80 93 L 02/11/19 17:40 62 16 128/76 99 02/11/19 15:11 98.1 F 70 18 161/90 96 Intake and Output 02/11/19 02/12/19 02/12/19 22:59 06:59 14:59 Intake Total 625.692 Balance 625.692 Intake: Intake, IV Titration 625.692 Amount Heparin Sod,Pork in 0.45% 125.692 NaCl 25,000 unit In 0.45 % NaCl 1 250ml.bag @ 9 UNITS/KG/HR 10.002 mls/hr IV .Q24H [facility] Rx#: [id number] Sodium Chloride 0.9% 1, 500 000 ml @ 100 mls/hr IV . Q10H [facility] Rx#:[id number] Other: # Voids 2 Weight 111.13 kg Results 02/12/19 03:29 02/11/19 16:00 Cardiac Enzymes 02/11/19 02/11/19 02/11/19 Range/Units 16:00 16:00 22:03 AST 33 (17-59) U/L Troponin I <0.012 <0.012 (0.000-0.034) ng/mL 02/12/19 Range/Units 03:29 AST (17-59) U/L Troponin I <0.012 (0.000-0.034) ng/mL Coagulation 02/11/19 02/12/19 Range/Units 16:00 02:07 PT 10.3 (9.0-12.0) sec APTT 24.4 35.3 H (22.0-30.0) sec Lipids 02/12/19 Range/Units 03:29 Triglycerides 121 (<150) mg/dL Cholesterol 144 (<200) mg/dL HDL Cholesterol 29 L (40-60) mg/dL CBC 02/11/19 02/12/19 Range/Units 16:00 03:29 WBC 8.2 (3.8-10.6) k/uL RBC 4.62 (4.30-5.90) m/uL Hgb 15.0 (13.0-17.5) gm/dL Hct 44.2 (39.0-53.0) % Plt Count 309 291 (150-450) k/uL Comprehensive Metabolic Panel 02/11/19 Range/Units 16:00 Sodium 140 (137-145) mmol/L Potassium 3.9 (3.5-5.1) mmol/L Chloride 106 (98-107) mmol/L Carbon Dioxide 24 (22-30) mmol/L BUN 16 (9-20) mg/dL Creatinine 0.93 (0.66-1.25) mg/dL Glucose 124 H (74-99) mg/dL Calcium 10.1 (8.4-10.2) mg/dL AST 33 (17-59) U/L ALT 27 (21-72) U/L Alkaline Phosphatase 45 (38-126) U/L Total Protein 7.6 (6.3-8.2) g/dL Albumin 4.3 (3.5-5.0) g/dL Current Medications Generic Name Dose Route Start Last Admin Trade Name Freq PRN Reason Stop Dose Admin Amlodipine Besylate 10 mg 02/12/19 09:00 Norvasc PO DAILY [facility] Aspirin 325 mg 02/12/19 09:00 Aspirin PO DAILY [facility] Atorvastatin Calcium 40 mg 02/12/19 09:00 Lipitor PO DAILY [facility] Ezetimibe 10 mg 02/12/19 09:00 Zetia PO DAILY [facility] Fenofibrate 160 mg 02/12/19 09:00 Lofibra PO DAILY [facility] Heparin Sodium (Porcine) 0 unit 02/11/19 16:26 02/12/19 02:45 Heparin IV 4,000 unit Q6HR PRN Administration Low PTT Protocol Sodium Chloride 1,000 mls @ 100 mls/hr 02/11/19 16:30 02/12/19 01:00 Saline 0.9% IV Not Given .Q10H [facility] Heparin Sodium/Sodium Chloride 250 mls @ 10.002 mls/hr 02/11/19 16:30 02/12/19 06:21 25,000 unit/ Sodium Chloride IV 12 units/kg/hr .Q24H [facility] 13.336 mls/hr Administration Protocol 9 UNITS/KG/HR Levothyroxine Sodium 125 mcg 02/12/19 06:30 02/12/19 05:59 Synthroid PO 125 mcg DAILY@0630 [facility] Administration Lisinopril 20 mg 02/12/19 09:00 Zestril PO DAILY [facility] Metoprolol Tartrate 25 mg 02/11/19 21:15 02/11/19 22:17 Lopressor PO Not Given BID [facility] Nitroglycerin 0.4 mg 02/11/19 16:26 Nitrostat SUBLINGUAL Q5M PRN Chest Pain Fish Oil 1200 Mg 1 cap 02/12/19 09:00 PO DAILY [facility] Nystatin 1 applic 02/11/19 21:33 Mycostatin Cream TOPICAL HS PRN SKIN IRRITATIONS Triamcinolone Acetonide 1 applic 02/11/19 21:33 Kenalog TOPICAL HS PRN SKIN IRRITATION Intake and Output 02/11/19 02/12/19 02/12/19 22:59 06:59 14:59 Intake Total 625.692 Balance 625.692 Intake: Intake, IV Titration 625.692 Amount Heparin Sod,Pork in 0.45% 125.692 NaCl 25,000 unit In 0.45 % NaCl 1 250ml.bag @ 9 UNITS/KG/HR 10.002 mls/hr IV .Q24H [facility] Rx#: [id number] Sodium Chloride 0.9% 1, 500 000 ml @ 100 mls/hr IV . Q10H [facility] Rx#:[id number] Other: # Voids 2 Weight 111.13 kg 02/12/19 03:29 02/11/19 16:00
[2019-02-12] MEDS: METOPROLOL TARTRATE 25 MG TAB PO SCH (13:09)
--- NOTE | 2019-02-12 18:05 | ECHOS ---
STRESS ECHOCARDIOGRAM INDICATIONS: Chest pain. MEDICATIONS: BASELINE HEART RATE: 62 BASELINE BLOOD PRESSURE: 138/79 MAXIMUM HEART RATE: 130 MAXIMUM BLOOD PRESSURE: 185/99 85% MPHR: 122 100% MPHR: 144 METS: MAXIMUM STAGE REACHED: 30 mcg/kg per minute. TOTAL EXERCISE TIME: 7:30 CLINICAL INFORMATION: Baseline EKG shows sinus rhythm, normal axis, normal intervals. Patient was given intravenous dobutamine over a period of 7-1/2 minutes as per protocol, achieving 85% of predicted maximal heart rate without chest pain. At peak exercise, frequent PVCs were noted without significant ST-segment depression. Baseline echo shows normal left ventricular size with mild LV dysfunction with an ejection fraction of 45%. Basal septum and basal inferior wall appear hypokinetic at rest. Post dobutamine infusion, there is normal hyperdynamic response of all the segments of myocardium except the basal septum and basal inferior wall. CONCLUSIONS: 1. Negative stress test by EKG criteria. 2. No evidence of ischemia on this dobutamine echo. MMODL / IJN: [id number] /
== END 2019-02-12 14:30 | disposition home or self-care (01) ==
LOC: EC 15:06 → 1SOBS 16:26
PROVIDERS: ADMIT Family Medicine; ATTEND Family Medicine
DX: R07.89 Other chest pain (principal); I10 Essential (primary) hypertension; E11.9 Type 2 diabetes mellitus without complications; E78.5 Hyperlipidemia, unspecified; N42.9 Disorder of prostate, unspecified; E07.9 Disorder of thyroid, unspecified; G56.00 Carpal tunnel syndrome, unspecified upper limb; I25.10 Atherosclerotic heart disease of native coronary artery without angina pectoris; E66.9 Obesity, unspecified; S29.011D Strain of muscle and tendon of front wall of thorax, subsequent encounter; X50.9XXD Other and unspecified overexertion or strenuous movements or postures, subsequent encounter; Z68.37 Body mass index [BMI] 37.0-37.9, adult; Z79.82 Long term (current) use of aspirin; Z79.890 Hormone replacement therapy; Z79.1 Long term (current) use of non-steroidal anti-inflammatories (NSAID); Z79.84 Long term (current) use of oral hypoglycemic drugs; Z79.899 Other long term (current) drug therapy; Z88.0 Allergy status to penicillin; Z88.5 Allergy status to narcotic agent; Z90.49 Acquired absence of other specified parts of digestive tract; Z95.1 Presence of aortocoronary bypass graft; Z81.2 Family history of tobacco abuse and dependence
CPT/HCPCS: 96366 ×2; 96376 ×2; 96365; 99291; 36415; 93005; 93306; 93351; 85379; 83880; 80061; 80053; 82550; 83690; 83735; 84484 ×2; 85025; 85049; 85610; 85730 ×2; 71046; G0378 ×2; J1250; J1644 ×4

== ENCOUNTER 2021-10-14 09:18 | Emergency (ER) | payer MEDICARE, BC ==
[2021-10-14 09:24] VITALS: RESP 18; TEMP 97.6
--- NOTE | 2021-10-14 10:03 | ED ---
General Adult HPI - General Chief complaint: Allergic Reaction Stated complaint: allerigc reaction Time Seen by Provider: 10/14/21 09:50 Source: patient, family, EMS, RN notes reviewed, old records reviewed Mode of arrival: EMS Limitations: no limitations - History of Present Illness Initial comments: 81-year-old pleasant male, alert and oriented 4, presents to the emergency room with complaints of ALLERGIC reaction to codeine pill his gave him for back pain. Patient states he is ALLERGIC to codeine and his states she did not check his ALLERGY list before giving him the medication. He did become short of breath so she called EMS when they arrived they gave him Zofran and Benadryl and his symptoms have resolved. Patient denies any difficulty breathing at this time. No chest pain. No tongue swelling or throat closing sensations. No nausea vomiting or diarrhea. -: hour(s) (2) Severity scale (1-10): 0 Consistency: now resolved Associated Symptoms: denies other symptoms Treatments Prior to Arrival: other (Benadryl and Zofran) - Related Data Home Medications Medication Instructions Recorded Confirmed Aspirin EC [Ecotrin Low Dose] 81 mg PO DAILY 07/23/16 02/11/19 Ezetimibe [Zetia] 10 mg PO DAILY 07/23/16 02/11/19 Fish Oil/Dha/Epa [Fish Oil 1,200 1 cap PO DAILY 07/23/16 02/11/19 mg Fish Oil] Levothyroxine Sodium [Synthroid] 125 mcg PO DAILY 07/23/16 02/11/19 Metoprolol Tartrate [Lopressor] 25 mg PO BID 07/23/16 02/11/19 Naproxen Sodium [Aleve] 440 mg PO DAILY 07/23/16 02/11/19 Nystatin/Triamcin Cream [Mycolog 1 applic TOPICAL HS PRN 07/23/16 02/11/19 100,000-0.1 Unit/gm-% Cream] amLODIPine [Norvasc] 10 mg PO DAILY 07/23/16 02/11/19 metFORMIN HCL [Glucophage] 500 mg PO DAILY 07/23/16 02/11/19 ramipriL [Altace] 5 mg PO DAILY 07/23/16 02/11/19 Fenofibrate Nanocrystallized 145 mg PO DAILY 02/04/19 02/11/19 [Fenofibrate] Previous Rx's Medication Instructions Recorded Rosuvastatin Calcium [Crestor] 40 mg PO DAILY #90 tab 02/12/19 Allergies Allergy/AdvReac Type Severity Reaction Status Date / Time codeine Allergy Unknown Verified 10/14/21 09:24 Penicillins Allergy Unknown Verified 10/14/21 09:24 Review of Systems ROS Statement: Those systems with pertinent positive or pertinent negative responses have been documented in the HPI. ROS Other: All systems not noted in ROS Statement are negative. Past Medical History Past Medical History: Coronary Artery Disease (CAD), Hyperlipidemia, Hypertension, Prostate Disorder, Thyroid Disorder Additional Past Medical History / Comment(s): carpel tunnel History of Any Multi-Drug Resistant Organisms: None Reported Past Surgical History: Cholecystectomy, Coronary Bypass/CABG Additional Past Surgical History / Comment(s): hemorrhoid, CABG X4 Past Anesthesia/Blood Transfusion Reactions: No Reported Reaction Past Psychological History: No Psychological Hx Reported Smoking Status: Never smoker Past Alcohol Use History: None Reported Past Drug Use History: None Reported - Past Family History Father Family Medical History: No Reported History Additional Family Medical History / Comment(s): Smoker Mother Family Medical History: No Reported History General Exam Limitations: no limitations General appearance: alert, in no apparent distress Eye exam: Present: normal appearance. Absent: scleral icterus, conjunctival injection ENT exam: Present: normal exam, normal oropharynx, mucous membranes moist Neck exam: Present: normal inspection, full ROM. Absent: tenderness, meningismus, lymphadenopathy, thyromegaly Respiratory exam: Present: normal lung sounds bilaterally. Absent: respiratory distress, accessory muscle use Cardiovascular Exam: Absent: regular rate GI/Abdominal exam: Present: soft. Absent: tenderness Extremities exam: Present: normal inspection, normal capillary refill Back exam: Absent: tenderness, CVA tenderness (R), CVA tenderness (L) Neurological exam: Present: alert, oriented X3 Psychiatric exam: Present: normal affect, normal mood Skin exam: Present: warm, dry, normal color. Absent: cyanosis, diaphoretic, petechiae, pallor Course Vital Signs 10/14/21 10/14/21 10/14/21 09:19 09:25 11:37 Temperature 97.6 F Pulse Rate 79 61 Respiratory 18 18 18 Rate Blood Pressure 167/92 138/87 O2 Sat by Pulse 96 96 Oximetry Medical Decision Making - Medical Decision Making Patient was observed in the emergency room for over 2 hours, vital signs are stable, lung sounds are clear, no nausea vomiting, no throat swelling, no chest pain. He states he is feeling much better. Vital signs are stable. He was discharged home and instructed take Benadryl as needed and return to the emergency room with any new or concerning symptoms. Family member and at bedside AGREEABLE to this plan of care. Case discussed with Dr. Delaney - Lab Data Lab Results 10/14/21 Range/Units 10:15 Urine Color Yellow Urine Appearance Clear (Clear) Urine pH 7.0 (5.0-8.0) Ur Specific [place] 1.016 (1.001-1.035) Urine Protein Negative (Negative) Urine Glucose (UA) 3+ H (Negative) Urine Ketones Trace H (Negative) Urine Blood Negative (Negative) Urine Nitrite Negative (Negative) Urine Bilirubin Negative (Negative) Urine Urobilinogen <2.0 (<2.0) mg/dL Ur Leukocyte Esterase Negative (Negative) Disposition Clinical Impression: Allergic reaction Disposition: HOME SELF-CARE Condition: Good Additional Instructions: You can take 25-50 mg of Benadryl every 8 hours as needed for any nausea. Return to the emergency room with any new or concerning symptoms including throat swelling, difficulty breathing, chest pain or persistent nausea vomiting. Do not take medications that are not prescribed to you. Follow-up with the primary care doctor next week. Is patient prescribed a controlled substance at d/c from ED?: No Referrals: Shaun Desai MD [Primary Care Provider] - 1-2 days Time of Disposition: 11:29
[2021-10-14 10:38] LABS: Appearance,Urine Clear (Clear); Bilirubin,Urine Negative (Negative); Blood,Urine Negative (Negative); Color,Urine Yellow; Glucose,Urine (UA) 3+ (Negative); Ketones,Urine Trace (Negative); Leukocyte Esterase,Urine Negative (Negative); Nitrite,Urine Negative (Negative); Protein,Urine Negative (Negative); Specific Gravity,Urine 1.016 (1.001-1.035); Urobilinogen,Urine <2.0 mg/dL (<2.0)
[2021-10-14 11:46] VITALS: BP 138/87; PULSE 61
== END 2021-10-14 11:37 | disposition home or self-care (01) ==
LOC: EC 09:18
DX: T78.40XA Allergy, unspecified, initial encounter (principal); I10 Essential (primary) hypertension; E78.5 Hyperlipidemia, unspecified; I25.10 Atherosclerotic heart disease of native coronary artery without angina pectoris; Z79.82 Long term (current) use of aspirin; Z79.84 Long term (current) use of oral hypoglycemic drugs; Z88.0 Allergy status to penicillin; Z88.5 Allergy status to narcotic agent; Z95.1 Presence of aortocoronary bypass graft; Z79.899 Other long term (current) drug therapy
CPT/HCPCS: 81003; 99283

== ENCOUNTER 2022-12-24 16:20 | Emergency (ER) | payer MEDICARE, BC ==
[2022-12-24 16:25] VITALS: BP 161/78; PULSE 64; RESP 20; TEMP 98.2
[2022-12-24 16:54] LABS: Basophils % (A) 0 %; Eosinophils # (A) 0.2 k/uL (0-0.7); Eosinophils % (A) 2 %; HCT 43.6 % (39.0-53.0); HGB 14.6 gm/dL (13.0-17.5); Lymphocytes # (A) 2.2 k/uL (1.0-4.8); Lymphocytes % (A) 22 %; MCH 32.2 pg (25.0-35.0); MCHC 33.6 g/dL (31.0-37.0); MCV 95.9 fL (80.0-100.0); Mean Platelet Volume 7.6; Monocytes # (A) 0.6 k/uL (0-1.0); Monocytes % (A) 6 %; Neutrophils # (A) 6.7 k/uL (1.3-7.7); Neutrophils % (A) 67 %; Platelet Count 305 k/uL (150-450); RBC 4.54 m/uL (4.30-5.90); WBC 9.9 k/uL (3.8-10.6)
[2022-12-24 17:04] LABS: Partial Thromboplastin Time 23.4 sec (22.0-30.0); Prothrombin Time 10.6 sec (9.0-12.0)
--- NOTE | 2022-12-24 17:13 | XR ---
EXAMINATION TYPE: XR chest 2V DATE OF EXAM: 12/24/2022 4:52 PM COMPARISON: Chest x-ray 02/11/2019 TECHNIQUE: XR chest 2V . CLINICAL INDICATION:Male, 82 years old with history of Chest Pain; FINDINGS: Lungs/Pleura: There is no evidence of pleural effusion, focal consolidation, or pneumothorax. Pulmonary vascularity: Unremarkable. Heart/mediastinum: Cardiomediastinal silhouette is unremarkable. Atherosclerotic calcifications are seen in the aorta. Musculoskeletal: Multiple level degenerative disc disease changes seen throughout the spine. Midline sternotomy wires are noted and stable. IMPRESSION: No acute cardiopulmonary disease/process.
[2022-12-24 17:40] LABS: ALT 26 U/L (4-49); AST 32 U/L (17-59); African American GFR (CKD) 81 (>60 ml/min/1.73 sqM); Albumin 4.2 g/dL (3.5-5.0); Alkaline Phosphatase 49 U/L (38-126); Anion Gap 11 mmol/L; Blood Urea Nitrogen 17 mg/dL (9-20); Calcium 9.8 mg/dL (8.4-10.2); Carbon Dioxide 23 mmol/L (22-30); Chloride 103 mmol/L (98-107); Glucose 201 mg/dL (74-99); Magnesium 1.7 mg/dL (1.6-2.3); Non-African American GFR(CKD) 70 (>60 ml/min/1.73 sqM); Sodium 137 mmol/L (137-145); Total Bilirubin 0.5 mg/dL (0.2-1.3); Total Protein 7.6 g/dL (6.3-8.2)
--- NOTE | 2022-12-24 18:52 | ED ---
Chest Pain HPI - General Source: patient Mode of arrival: ambulatory Limitations: no limitations <Kyle Contreras - Last Filed: 12/24/22 18:52> - General Source: patient, family, RN notes reviewed, old records reviewed <Rudolph Pearce - Last Filed: 12/25/22 05:48> - General Chief Complaint: Chest Pain Stated Complaint: Chest Pain - History of Present Illness Initial Comments: 10-year-old male presents to the ED with a chief complaint of chest pain. Per ongoing for the past 3 days. Denies shortness of breath. (Kyle Contreras) Patient originally seen as a quick note. Presents with chest pain. Does have a history of coronary bypass and CAD. Describes the pain as right-sided. Comes and goes. No known palliative or provocative factors. Currently does not have the pain. Does not have the pain here in the department. I evaluated patient after he is placed in room 2. Workup has already been started. He would like to go home with possible. Currently has no pain. Denies shortness of breath or any difficulty in breathing with the pain. Denies any diaphoresis or nausea or vomiting with the pain. No association with movements. Presents for further evaluation of this time. (Rudolph Pearce) - Related Data Home Medications Medication Instructions Recorded Confirmed Aspirin EC [Ecotrin Low Dose] 81 mg PO DAILY 07/23/16 12/24/22 Ezetimibe [Zetia] 10 mg PO HS 07/23/16 12/24/22 Fish Oil/Dha/Epa [Fish Oil 1,200 1 cap PO DAILY 07/23/16 12/24/22 mg Fish Oil] Levothyroxine Sodium [Synthroid] 125 mcg PO DAILY 07/23/16 12/24/22 Metoprolol Tartrate [Lopressor] 25 mg PO BID 07/23/16 12/24/22 Naproxen Sodium [Aleve] 440 mg PO DAILY 07/23/16 12/24/22 Nystatin/Triamcin Cream [Mycolog 1 applic TOPICAL HS PRN 07/23/16 12/24/22 100,000-0.1 Unit/gm-% Cream] amLODIPine [Norvasc] 10 mg PO DAILY 07/23/16 12/24/22 Fenofibrate Nanocrystallized 145 mg PO DAILY 02/04/19 12/24/22 [Fenofibrate] Dieter's Green Tea 1 tab PO HS 12/24/22 12/24/22 Metformin(Unknown) 1 tab PO DIRECTED 12/24/22 12/24/22 Multivit-Min/FA/Lycopen/Lutein 1 tab PO DAILY 12/24/22 12/24/22 [Centrum Silver Men Tablet] Rosuvastatin [Crestor] 20 mg PO HS 12/24/22 12/24/22 ramipriL 10 mg PO DAILY 12/24/22 12/24/22 Allergies Allergy/AdvReac Type Severity Reaction Status Date / Time codeine Allergy Unknown Verified 12/24/22 22:14 Penicillins Allergy Unknown Verified 12/24/22 22:14 Review of Systems ROS Other: All systems not noted in ROS Statement are negative. <Kyle Contreras - Last Filed: 12/24/22 18:52> ROS Other: All systems not noted in ROS Statement are negative. <Rudolph Pearce - Last Filed: 12/25/22 05:48> ROS Statement: Those systems with pertinent positive or pertinent negative responses have been documented in the HPI. Review of Systems: CONST: Denies fever EYES: Denies blurry vision ENT: Denies nasal congestion C/V: Denies Chest pain RESP: Denies shortness of breath GI: Denies abdominal pain : Denies dysuria SKIN: Denies rash. MSK: Denies joint pain. NEURO: Denies headache (Rudolph Pearce) EKG Findings - EKG Comments: EKG Findings:: 12-lead Electrocardiogram Interpretation Note. EKG was reviewed and interpreted by myself. 12-lead ECG performed at 1641 is interpreted by me as revealing normal sinus rhythm at a rate of 60 beats per minute. Benton is gisselle l. AL interval is 171 ms, QRS duration 74 ms, QTc is 424 ms.. Nonspecific T- wave inversion in lead III. T wave flattening in aVF. There were no ST or T wave abnormalities to suggest myocardial ischemia or injury. R wave progression across the precordium was satisfactory. By my interpretation this EKG is non- diagnostic for acute ischemia. 12-lead Electrocardiogram Interpretation Note. EKG was reviewed and interpreted by myself. 12-lead ECG performed at 2204 is interpreted by me as revealing normal sinus rhythm at a rate of 61 beats per minute. Benton is normal. AL interval is 180 ms, QRS duration 109 ms, QTc is 435 ms.. There were no ST or T wave abnormalities to suggest myocardial ischemia or injury. R wave progression across the precordium was satisfactory. By my interpretation this EKG is non-diagnostic for acute ischemia. When compared with prior EKGs, no change. EKG is compared with from January 2019. - EKG Results: EKG: interpreted by ERMD <Rudolph Pearce - Last Filed: 12/25/22 05:48> Past Medical History Past Medical History: Coronary Artery Disease (CAD), Hyperlipidemia, Hypertension, Prostate Disorder, Thyroid Disorder Additional Past Medical History / Comment(s): carpel tunnel History of Any Multi-Drug Resistant Organisms: None Reported Past Surgical History: Cholecystectomy, Coronary Bypass/CABG, Heart Catheterization With Stent Additional Past Surgical History / Comment(s): hemorrhoid, CABG X4 Past Anesthesia/Blood Transfusion Reactions: No Reported Reaction Past Psychological History: No Psychological Hx Reported Smoking Status: Never smoker Past Alcohol Use History: None Reported Past Drug Use History: None Reported - Past Family History Father Family Medical History: No Reported History Additional Family Medical History / Comment(s): Smoker Mother Family Medical History: No Reported History <Kyle Contreras - Last Filed: 12/24/22 18:52> General Exam Limitations: no limitations General appearance: alert, in no apparent distress Respiratory exam: Present: normal lung sounds bilaterally Cardiovascular Exam: Present: regular rate, normal rhythm Neurological exam: Present: alert, oriented X3 <Kyle Contreras - Last Filed: 12/24/22 18:52> <Rudolph Pearce - Last Filed: 12/25/22 05:48> - General Exam Comments Initial Comments: General: Appears in no acute distress. HEAD: Normal with no signs of head trauma. EYES: PERRLA, EOMI, conjunctiva normal, no discharge. ENT: Hearing grossly intact, normal oropharynx. RESPIRATORY: Clear breath sounds bilaterally. No wheezes, rales, or rhonchi. C/V: Regular rate and rhythm. S1 and S2 auscultated, no edema, peripheral pulses 2+ and intact throughout ABD: Abd is soft, nontender, nondistended EXT: Normal range of motion, no obvious deformity SKIN: No rashes or lesions observed on exposed skin. NEURO: Alert and oriented x 4. Cranial nerves II-XII intact. No focal sensory or strength deficits. (Rudolph Pearce) Course Vital Signs 12/24/22 16:22 Temperature 98.2 F Pulse Rate 64 Respiratory 20 Rate Blood Pressure 161/78 O2 Sat by Pulse 99 Oximetry Chest Pain MDM <Rudolph Pearce - Last Filed: 12/25/22 05:48> - MDM Was pt. sent in by a medical professional or institution (, PA, NATURAL DEVELOPER, urgent care, hospital, or halfway...) When possible be specific @ -No Did you speak to anyone other than the patient for history (EMS, parent, family, police, friend...)? What history was obtained from this source @ -No Did you review nursing and triage notes (agree or disagree)? Why? @ -I reviewed and agree with nursing and triage notes Were old charts reviewed (outside hosp., previous admission, EMS record, old EKG, old radiological studies, urgent care reports/EKG's, halfway records)? Report findings @ -Old charts and EKGs reviewed from 2018 Differential Diagnosis (chest pain, altered mental status, abdominal pain women, abdominal pain men, vaginal bleeding, weakness, fever, dyspnea, syncope, headache, dizziness, GI bleed, back pain, seizure, CVA, palpatations, mental health, musculoskeletal)? @ -Differential Chest Pain: Stable Angina, Unstable Angina, STEMI, NSTEMI Aortic Dissection, Pneumothorax, Musculoskeletal, Esophageal Spasm GERD, Cholecystitis, Pancreatitis, Zoster, this is not meant to be an all-inclusive list. EKG interpreted by me (3pts min.). @ -As above X-rays interpreted by me (1pt min.). @ -Chest x-ray shows no obvious acute cardio pulmonary process. CT interpreted by me (1pt min.). @ -None done U/S interpreted by me (1pt. min.). @ -None done What testing was considered but not performed or refused? (CT, X-rays, U/S, la bs)? Why? @ -None What meds were considered but not given or refused? Why? @ -None Did you discuss the management of the patient with other professionals (professionals i.e. , PA, NATURAL DEVELOPER, lab, RT, psych nurse, social security benefits interviewer, cabin cleaner, teacher, youth corrections officer, welfare case worker)? Give summary @ -No Was smoking cessation discussed for >3mins.? @ -No Was critical care preformed (if so, how long)? @ -No Were there social determinants of health that impacted care today? How? (Homelessness, low income, unemployed, alcoholism, drug addiction, transportation, low edu. Level, literacy, decrease access to med. care, residential, rehab)? @ -No Was there de-escalation of care discussed even if they declined (Discuss DNR or withdrawal of care, Hospice)? DNR status @ -No What co-morbidities impacted this encounter? (DM, HTN, Smoking, COPD, CAD, Cancer, CVA, ARF, Chemo, Hep., AIDS, mental health diagnosis, sleep apnea, morbid obesity)? @ -CAD Was patient admitted / discharged? Hospital course, mention meds given and route, prescriptions, significant lab abnormalities, going to OR and other pertinent info. @ -Based on the patient's presentation and physical exam, presents with atypical right-sided chest pain over the last few days that is intermittent but currently is not experiencing. Would like to go home. Has not received a workup and has been waiting in the waiting room for quite some time. Initial labs were remarkable for an undetectable troponin. Remainder the labs with an exception limits. EKG unremarkable. Chest x-ray unremarkable. Vital signs within acceptable limits. Remains asymptomatic. I did discuss with the patient I would like to obtain a repeat troponin if he would like to go home. He was in agreement with this plan. Due to the atypical nature of this chest pain we'll also obtain d-dimer. Both of these returned within normal limits. Troponin was undetectable. He was given an aspirin. We discussed the further results of his workup. He would like to go home. I believe this is reasonable. I did offer him observation admission due to his history but she declines at this time. Strict return precautions discussed. I instructed the patient to follow up with their PCP in the next 1-3 days. . I explained that the patient should return to the emergency department if they experience any worsening symptoms. Strict return precautions were discussed with the patient. The patient expressed understanding of these instructions. I answered all questions that the patient had. The patient was discharged home in good condition with their prescriptions and follow up information. Undiagnosed new problem with uncertain prognosis? @ -No Drug Therapy requiring intensive monitoring for toxicity (Heparin, Nitro, Insulin, Cardizem)? @ -No Were any procedures done? @ -No Diagnosis/symptom? @ -Atypical chest pain Acute, or Chronic, or Acute on Chronic? @ -Acute Uncomplicated (without systemic symptoms) or Complicated (systemic symptoms)? @ -Uncomplicated Side effects of treatment? @ -No Exacerbation, Progression, or Severe Exacerbation? @ -No Poses a threat to life or bodily function? How? (Chest pain, [place], [place], pneumonia, PE, COPD, DKA, ARF, appy, cholecystitis, CVA, Diverticulitis, Homicidal, Suicidal, threat to staff... and all critical care pts) @ -No (Rudolph Pearce) Disposition <Kyle Contreras - Last Filed: 12/24/22 18:52> Is patient prescribed a controlled substance at d/c from ED?: No Time of Disposition: 22:34 <Rudolph Pearce - Last Filed: 12/25/22 05:48> Clinical Impression: Atypical chest pain Disposition: HOME SELF-CARE Condition: Good Instructions (If sedation given, give patient instructions): Chest Pain (ED) Referrals: Shaun Desai MD [Primary Care Provider] - 1-2 days
[2022-12-24] MEDS ORDERED: ASPIRIN 81 MG PO STA (21:44)
== END 2022-12-24 22:40 | disposition home or self-care (01) ==
LOC: EC 16:20
DX: R07.89 Other chest pain (principal); I25.10 Atherosclerotic heart disease of native coronary artery without angina pectoris; I10 Essential (primary) hypertension; E78.5 Hyperlipidemia, unspecified; E07.9 Disorder of thyroid, unspecified; Z79.890 Hormone replacement therapy; Z79.899 Other long term (current) drug therapy; Z79.82 Long term (current) use of aspirin; Z88.5 Allergy status to narcotic agent; Z88.0 Allergy status to penicillin
CPT/HCPCS: 36415; 71046; 80053; 83735; 84484; 85025; 85379; 85610; 85730; 93005; 99285